=== PATIENT | female | born 1980 | race African-American/Black ===

== ENCOUNTER → 2016-07-14 | Outpatient (CLI) | payer BC ==
[~2016-07-14] MED LIST: PERC7.5T3 MT; Z.0.NO CURRENT MEDS
--- NOTE | 2016-07-14 19:04 | EKG ---
Date Performed: 07/14/2016 Time Performed: 10:47:34 PTAGE: 36 years EKG: Sinus rhythm NORMAL ECG NO PREVIOUS TRACING DOCTOR: Alexa Navas Interpretating Date/Time 07/14/2016 19:02:51
== END ==
LOC: HCAV 10:28
PROVIDERS: ATTEND Obstetrics & Gynecology
DX: R07.9 Chest pain, unspecified (principal)
CPT/HCPCS: 93005

== ENCOUNTER 2016-10-24 13:33 | Emergency (ER) | payer BC ==
[~2016-10-24] VITALS: Ht 157.5 cm; Wt 77.1 kg
--- NOTE | 2016-10-24 14:30 | PD ---
HPI Chief Complaint Cramping Travel History International Travel<30 Days: No Contact w/Intl Traveler<30Days: No Known Affected Area: No History of Present Illness HPI 36y/o , IUP at 30.0 PNC complicated by h/o LEEP, h/o PTD Patient presents c/o onset of intermittent lower abdominal cramping occurring about 2-3x/day that started Tuesday night. There are no aggravating or alleviating factors and have been no attempted treatment. She reports the cramping only lasts a minute or two. She said she didn't come in before now because she was just trying to ignore it but her girlfriend told her she should come get checked out. She denies any urinary complaints. She reports she doesn' t drink a lot of water. She also reports she is constipated and usually will only have 2 bowel movements per week. She reports good FM. She denies any LOF or VB, she denies any regular painful ctx. Para: 2 : 5 Miscarriage: 2 History Past Medical History Narrative Medical Anemia Obstetric History Obstetric History SAB x1, Biochemical x1 FT x1 (37w) PTD x1 (36w) h/o abnl PAP s/p LEEP Past Surgical History Narrative Surgical LEEP Family History Narrative Family History DM HTN Social History Alcohol Use: No Tobacco Use: No Substance Abuse: No Allergies-Medications (Allergen,Severity, Reaction): Coded Allergies: No Known Allergies (Verified , 10/24/16) Home Meds Reported Medications Oxycodone W/ Acetaminophen (Percocet)1 Tab Tab1-2 Ia Q4hprn #20 10/15/12 Miscellaneous (No Current Meds) [facility] [place] Review of Systems Except as stated in HPI: all other systems reviewed are Neg Physical Exam Narrative A&Ox3, NAD VSS AF GENERAL: Well-nourished, well-developed patient. SKIN: Warm and dry. No rashes/lesions noted. HEAD: Normocephalic and atraumatic. EYES: No scleral icterus. No injection or drainage. ENT: No nasal drainage noted. Mucous membranes pink. Airway patent. NECK: Supple, trachea midline. No JVD. CARDIOVASCULAR: Regular rate and rhythm without murmurs, gallops, or rubs. RESPIRATORY: Breath sounds equal bilaterally. No accessory muscle use. BREASTS: Deferred ABDOMEN/GI: Abdomen soft, non-tender, bowel sounds present, no rebound, no guarding Gravid GENITOURINARY: External Genitalia: intact and normal in appearance BUS glands: normal Cervix: visibly normal, no cervical/vaginal masses, normal rugae, some increased d/c in vagina noted with SSE, FFN obtained Dilatation: closed Effacement: thick Station: high Presentation: posterior Membranes: intact Uterine Contractions: none noted FHT's: Category: [1] Baseline: [130s] Reactive: [reactive] Variability: [moderate LTV] Decels: [no decels, good accels noted] EXTREMITIES: No cyanosis or edema. BACK: Nontender without obvious deformity. No CVA tenderness. NEUROLOGICAL: Awake and alert. Motor and sensory grossly within normal limits. Five out of 5 muscle strength in all muscle groups. Normal speech. MS: grossly normal ROM, gait, muscle strength PSYCH: grossly normal memory, affect Data Data Orders Vital Signs (Adult) .ON ADMISSION (10/24/16 14:28) ^ Labor Status (10/24/16 14:28) Urinalysis - C+S If Indicated (10/24/16 14:28) ^ Hydration (10/24/16 14:28) Fibronectin (10/24/16 14:28) Wet Prep Profile (10/24/16 14:28) MDM Plan A/P: 36y/o 1. IUP at 30.0 2. Cramping: no evidence of PTL, patient not darci here and FFn neg. Cervix closed on examination but patient doesn't drink much water, encourage good hyrdation 3. UA: no evidence of UTI 4. AMA 5. h/o LEEP 6. wellbeing: reassuring testing, FHR reassuring and appropriate for gestational age, reactive NST 7. Constipation: discussed that constipation can cause the sensation of cramping from her colon. Discussed effects of on constipation and suggestions given including increased po hydration, increased fiber and/or fiber supplementation, stool softener. 8. F/U with primary OB in 2-3d or sooner if needed Diagnosis Diagnosis: Primary Impression: 30 weeks gestation of Additional Impression: False labor Disposition: 01 DISCHARGE HOME Condition: Good Patient Instructions: Abdominal Pain in (ED), Early Labor Signs (ED) , Movement (ED) Additional Instructions: Encourage good hydration Increase fiber for constipation, may take fiber supplements and/or stool softener FKC PTL precautions F/U with primary Ob in 2-3d or sooner if needed Magaly Martinez MD Oct 24, 2016 14:30
[2016-10-24 15:10] LABS: BACTERIA, URINE OCC /hpf; BLOOD, URINE NEG (NEG); COMMENT (UR) CULT NOT INDICATED; CULTURE IF INDICATED CULT NOT INDICATED; GLUCOSE,URINE 1000 mg/dL (NEG); KETONE, URINE TRACE mg/dL (NEG); MUCUS URINE FEW /lpf (OCC); NITRITE,URINE NEG (NEG); SQUAMOUS EPITHELIAL CELL URINE 16 /hpf (0-5); URINE COLOR YELLOW (YELLW/STRAW)
[2016-10-24] MEDS ORDERED: BETAMETHASONE SOD PHOS/ACETATE SUSP 30 MG/5 ML VIAL IM ONE (18:00)
== END 2016-10-24 18:46 | disposition home or self-care (01) ==
LOC: HOBED 13:33
DX: O47.03 False labor before 37 completed weeks of gestation, third trimester (principal); Z3A.30 30 weeks gestation of pregnancy
CPT/HCPCS: 81001; 82731; 87210; 96372

== ENCOUNTER 2016-12-03 10:40 | Inpatient (IN) | payer BC ==
[2016-12-03] VITALS (14 sets, daily range): BP systolic 98–159; BP diastolic 69–99; PULSE 101–123; RESP 16–40; TEMP 98.3–98.8; O2SAT 92–100
[~2016-12-03] VITALS: Ht 157.5 cm; Wt 81.3 kg
--- NOTE | 2016-12-03 11:19 | PD ---
HPI Chief Complaint Headaches, Vomiting 3 days Diarrhea 1 day Date Seen: Dec 03, 2016 Time Seen: 11:00 Travel History International Travel<30 Days: No Contact w/Intl Traveler<30Days: No Known Affected Area: No History of Present Illness HPI Pt is a 36 yo with EDC at 01-02-2017. Pt is 35 weeks and 5 days. She reports nausea and vomiting past 3 days. Seen at [facility] and sent home with modified bed rest Pt also reports diarrhea since last night. Denies any sick contacts. She has had some headaches, but no vision disturbances and no right upper quadrant pain. Pt states BP has been elevated past few days, first at ER and then at the office. Pt has had longstanding pedal edema, but appears to have worsened past couple of days. Active movements No vaginal bleeding or vaginal leaking. Weeks Gestation: 35 Para: 2 : 5 History Past Medical History Medical History: Denies Significant Hx Obstetric History Obstetric History prior term pregnancies x 2 x two 1st trimester miscarriages Past Surgical History Narrative Surgical h/o LEEP 10 years ago Family History Family History: Negative Social History Alcohol Use: No Tobacco Use: No Substance Abuse: No Allergies-Medications (Allergen,Severity, Reaction): Coded Allergies: No Known Allergies (Verified , 10/24/16) Home Meds Reported Medications Oxycodone W/ Acetaminophen (Percocet) 1 Tab Tab, 1 - 2 MT Q4HPRN, #20 10/15/12 Miscellaneous (No Current Meds) [facility] [place] Review of Systems Except as stated in HPI: all other systems reviewed are Neg Physical Exam Narrative GENERAL: Well-nourished, well-developed patient. SKIN: Warm and dry. HEAD: Normocephalic and atraumatic. EYES: No scleral icterus. No injection or drainage. ENT: No nasal drainage noted. Mucous membranes pink. Airway patent. NECK: Supple, trachea midline. No JVD. CARDIOVASCULAR: Regular rate and rhythm without murmurs, gallops, or rubs. RESPIRATORY: Breath sounds equal bilaterally. No accessory muscle use. BREASTS: Bilateral exam showed no masses , no retractions, no nipple discharge. ABDOMEN/GI: Abdomen soft, non-tender, bowel sounds present, no rebound, no guarding Gravid to [35] weeks size Fundal Height: [-] GENITOURINARY: External Genitalia: intact and normal in appearance BUS glands: [-] Cervix: [-] Dilatation: [-] Effacement: [-] Station: [-] Presentation: [-] Membranes: [intact or ruptured] Uterine Contractions: [-] FHT's: Category: [-] Baseline: [-] Reactive: [-] Variability: [-] Decels: [-] EXTREMITIES: No cyanosis or edema. BACK: Nontender without obvious deformity. No CVA tenderness. NEUROLOGICAL: Awake and alert. Motor and sensory grossly within normal limits. Five out of 5 muscle strength in all muscle groups. Normal speech. Data Data Vital Signs Reviewed: Yes [facility] Medical Record Reviewed: Yes Interpretation(s) 36 yo with nausea, vomiting diarrhea. Pt has elevated BPs, and urine confirms dehydration ( SG 1.050. with ketones) and urine protein is 600mg/dL PIH labd wnl except for uric Acid at 6.5. Pedal edema 3+, DTRs at patella 1+, no ankle clonus. D/W Dr Carson, plan is to admit for 23 hour observation. IVF for rehydration. Initiate 24 urine collection, observe BPs, repeat PIH labs in am. Plan Admit 23 hour observation. Initiate 24 hour urine collection, observe BPs, repeat PIH labs in AM. Allow diet as tolerated, activity bedrest with bathroom privileges. Diagnosis Diagnosis: Primary Impression: 36 weeks gestation of Additional Impressions: Dehydration PIH ( induced hypertension), antepartum Gastroenteritis Condition: Stable Stephan Redding MD Dec 03, 2016 11:19
[2016-12-03 11:30] LABS: HEMATOCRIT 34.6 % (35.0-46.0); MEAN CELL VOLUME 73.1 FL (80.0-100.0); MEAN CORPUSCULAR HEMOGLOBIN 22.8 PG (27.0-34.0); MEAN CORPUSCULAR HGB CONC 31.2 % (32.0-36.0); PLATELET COUNT 228 TH/MM3 (150-450); RED BLOOD COUNT 4.74 MIL/MM3 (4.00-5.30); RED CELL DISTRIBUTION WIDTH 19.3 % (11.6-17.2); REVIEW FLAG FINAL; WHITE BLOOD COUNT 6.4 TH/MM3 (4.0-11.0)
[2016-12-03] MEDS ORDERED: ACETAMINOPHEN 325 MG TAB PO PRN ×2 (11:30→13:00)
[2016-12-03 11:43] LABS: BACTERIA, URINE MOD /hpf; BLOOD, URINE SMALL (NEG); COMMENT (UR) CULTURE INDICATED; CULTURE IF INDICATED CULTURE INDICATED; GLUCOSE,URINE 70 mg/dL (NEG); HYALINE CAST, URINE 2 /lpf (RARE); KETONE, URINE 40 mg/dL (NEG); MUCUS URINE MANY /lpf (OCC); NITRITE,URINE NEG (NEG); SQUAMOUS EPITHELIAL CELL URINE 16 /hpf (0-5); TRANSITIONAL EPI CELLS, URINE <1 /hpf; URINE COLOR YELLOW (YELLW/STRAW)
[2016-12-03 11:51] LABS: ALT (GPT) 29 U/L (10-53); ANION GAP 10 MEQ/L (5-15); AST (GOT) 31 U/L (15-37); BICARBONATE 22.5 MEQ/L (21.0-32.0); BLOOD UREA NITROGEN 9 MG/DL (7-18); CHLORIDE 110 MEQ/L (98-107); GLOMERULAR FILTRATION RATE 118 ML/MIN (>89); POTASSIUM 3.8 MEQ/L (3.5-5.1); SODIUM (NA) 142 MEQ/L (136-145); URIC ACID 6.6 MG/DL (2.6-6.0)
[2016-12-03 11:53] LABS: ALKALINE PHOSPHATASE 134 U/L (45-117); TOTAL BILIRUBIN ADULT 0.5 MG/DL (0.2-1.0)
[2016-12-03] MEDS ORDERED: SODIUM CHLORIDE 0.9% FLUSH 5 ML FLUSH IV PRN (12:30)
[2016-12-03] MEDS ORDERED: ONDANSETRON ODT 4 MG TAB PO PRN (12:30)
[2016-12-03] MEDS ORDERED: LACTATED RINGER'S 1000 ML INJ 1,000 ML IV SCH ×3 (13:00→19:10)
[2016-12-03] MEDS ORDERED: ONDANSETRON HCL 4 MG/2 ML VIAL IV PUSH ONE (13:00)
[2016-12-03] MEDS ORDERED: FUROSEMIDE 40 MG/4 ML VIAL ONE (13:15)
[2016-12-03] MEDS ORDERED: LABETALOL HCL 100 MG/20 ML VIAL ONE (13:25)
[2016-12-03] MEDS ORDERED: MAGNESIUM SULFATE 40 GM PREMIX 1,000 ML ONE (13:27)
[2016-12-03] MEDS ORDERED: OXYTOCIN 10 UNIT/ML AMP ONE (13:40)
[2016-12-03] MEDS ORDERED: ceFAZolin INJ 1,000 MG VIAL ONE (13:45)
[2016-12-03 13:54] LABS: BLOOD GAS BASE EXCESS -5.4 mmol/L (-2-2); BLOOD GAS CARBOXYHEMOGLOBIN 1.5 % (0-4); BLOOD GAS HCO3 18 mmol/L (22-26); BLOOD GAS METHEMOGLOBIN 1.2 % (0-2); BLOOD GAS O2 HGB SATURATION 75 % (90-100); BLOOD GAS PCO2 29 mmHg (38-42); BLOOD GAS PO2 48 mmHg (61-120); BLOOD GAS TOTAL HGB 11.4 G/DL (12.0-16.0); TEMP CORR TO 98.6
[2016-12-03 13:55] LABS: BLOOD GAS BASE EXCESS -4.2 mmol/L (-2-2); CORD BLOOD GAS HCO3 24 mmol/L (21-29); CORD BLOOD GAS PCO2 70 mmHG (34-78); CORD BLOOD GAS PH 7.15 (7.14-7.42)
[2016-12-03 13:55] LABS: CRITICAL VALUE YES; DRAW SITE RT RADIAL; FIO2 100 %; LITER FLOW 15 L/M; NUMBER OF ARTERIAL PUNCTURES 1; STAT YES; ULNAR PULSE PRESENT
[2016-12-03 13:56] LABS: BLOOD GAS O2 HGB SATURATION 2 % (90-100); CORD BLOOD GAS PO2 3 mmHG (3.0-40.0); DRAW SITE CORD BLOOD; STAT YES
[2016-12-03] MEDS ORDERED: FUROSEMIDE 40 MG/4 ML VIAL IV PUSH ONE ×2 (14:00→17:00)
--- NOTE | 2016-12-03 14:07 | PD.OB.DELI ---
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 Urinary catheter: Inserted using sterile technique Sterile preparation: With 10% povidone iodine (Betadine), With drapes to expose affected area Position: Supine with wedge to left side Operative Features Skin Incision: Pfannenstiel Uterine Incision: Low transverse w/knife / blunt ext Membranes Ruptured: Artificially Presentation: Breech Delivery date: Dec 03, 2016 Delivery time: 13:40 Delivery of : Uneventful Infant: Single One Minute : 8 Five Minute : 9 Weight: 5# 5 oz Status of infant: Viable, Cord blood (cord gas) Placenta delivered: Intact Medications: Antibiotics Estimated blood loss: 500 Procedure tolerated: Well Maternal Complications: Pulmonary (edema) Maternal Condition: Stable Condition: Stable Leo Carson MD Dec 03, 2016 14:07
[2016-12-03] MEDS ORDERED: OXYTOCIN 30 UNITS-500ML PREMIX 500 ML IV ONE (14:15)
[2016-12-03] MEDS ORDERED: SODIUM CHLORIDE 0.9% FLUSH 10 ML FLUSH IV FLUSH PRN (14:15)
[2016-12-03] MEDS ORDERED: KETOROLAC TROMETHAMINE 60 MG/2 ML (IM) VIAL IM PRN (14:15)
--- NOTE | 2016-12-03 14:24 | RADRPT ---
EXAM DATE/TIME: 12/03/2016 13:10 [facility] COMPARISON: No previous studies available for comparison. INDICATIONS : Shortness of breath. MEDICAL HISTORY : None. SURGICAL HISTORY : None. ENCOUNTER: Initial ACUITY: 1 day PAIN SCORE: 0/10 LOCATION: Bilateral chest FINDINGS: The heart is mildly enlarged. Moderate pulmonary vascular congestion is noted bilaterally. Small bi lateral pleural effusions are noted. CONCLUSION: 1. Moderate pulmonary vascular congestion bilaterally. 2. Small bilateral pleural effusions. 3. Mild cardiomegaly. Brendan Frank MD on December 03, 2016 at 14:03 Board Certified Radiologist. This report was verified electronically.
[2016-12-03] MEDS ORDERED: MIDAZOLAM HCL 2 MG/2 ML VIAL ONE (14:42)
--- NOTE | 2016-12-03 14:48 | RADRPT ---
EXAM DATE/TIME: 12/03/2016 14:04 [facility] COMPARISON: No previous studies available for comparison. INDICATIONS : Instrument verification. MEDICAL HISTORY : None. SURGICAL HISTORY : stat c/section ENCOUNTER: Initial ACUITY: 1 day PAIN SCORE: 0/10 LOCATION: lower abdominal FINDINGS: Supine view of the abdomen was performed. The abdominal bowel gas pattern is normal. No abnormal ma sses, calcifications, or organomegaly is seen. No metallic foreign bodies are identified within the abdomen or pelvis. The osseous structures are unremarkable. CONCLUSION: No metallic foreign bodies identified within the abdomen or pelvis. Brendan Frank MD on December 03, 2016 at 14:47 Board Certified Radiologist. This report was verified electronically.
--- NOTE | 2016-12-03 14:49 | EKG ---
Date Performed: 12/03/2016 Time Performed: 13:22:53 PTAGE: 36 years EKG: Baseline artifact present SINUS TACHYCARDIA WITH SHORT HI INTERVAL Premature ventricular co ntractions Nonspecific T wave changes POSSIBLE ANTERIOR MYOCARDIAL INFARCTION , OF INDETERMINATE AGE ABNORMAL ECG Compared to prior electrocardiogram, Nonspecific T wave changes and PVCs are now present and rate has increased PREVIOUS TRACING : 07/14/2016 10.47 DOCTOR: Chadd Garcia Interpretating Date/Time 12/03/2016 14:46:44
[2016-12-03] MEDS ORDERED: PROPOFOL 1000 MG/100 ML INJ 100 ML IV PRN (15:00)
[2016-12-03] MEDS ORDERED: fentaNYL DRIP 250 ML IV PRN (15:00)
[2016-12-03] MEDS: FAMOTIDINE 20 MG/2 ML VIAL IV PUSH SCH (15:00)
--- NOTE | 2016-12-03 15:12 | PD.CONS ---
[facility] Service Critical Care Medicine Consult Requested By Obstetrics Reason for Consult Critical Care Primary Care Physician No Primary Care Physician History of Present Illness 36 y/o 35 weeks gestation mother developed hypertension over past several days which escalated to fluid retention, pulmonary edema, and preeclampsia. She was treated with magnesium, diuretics, and intubation and taken straight to the OR for delivery. CXR with diffuse interstitial edema. I met her on her arrival to the [facility]. Pupils 4 mm, nonreactive. Recent relaxant by history. BP 160s. Review of Systems ROS Unobtainable Past Family Social History Allergies: Coded Allergies: No Known Allergies (Verified , 10/24/16) Past Medical History History Past Medical History Medical History: Denies Significant Hx Obstetric History Obstetric History prior term pregnancies x 2 x two 1st trimester miscarriages Past Surgical History Narrative Surgical h/o LEEP 10 years ago Family History Family History: Negative Social History Alcohol Use: No Tobacco Use: No Substance Abuse: No Allergies-Medications Allergies-Medications (Allergen,Severity, Reaction): Coded Allergies: No Known Allergies (Verified , 10/24/16) Home Meds Reported Medications Oxycodone W/ Acetaminophen (Percocet) 1 Tab Tab, 1 - 2 MT Q4HPRN, #20 10/15/12 Miscellaneous (No Current Meds) Misc 10/13/12 Physical Exam Vital Signs Vital Signs Date Time Temp Pulse Resp B/P (MAP) Pulse Ox O2 Delivery O2 Flow Rate FiO2 12/03/16 14:50 92 100 12/03/16 13:03 40 12/03/16 11:30 101 138/97 (111) 12/03/16 11:30 102 12/03/16 11:30 98.3 18 12/03/16 11:26 103 139/96 (110) 12/03/16 11:25 102 12/03/16 11:20 104 12/03/16 11:15 106 Physical Exam P 118, BP 168/114, R 16, Sats 91% Head: Normal. Neck: Supple, orally intubated. Lungs: Diffuse crackles, no wheezes. Good air movement. Heart: NL S1S2, no m,r. Abdomen: Nondistended, soft. Lower transverse incision. Neuro: Unresponsive, no movement. No gag or cough. No spontaneous respirations Laboratory Laboratory Tests Test 12/03/16 11:10 12/03/16 13:15 9/15/17 13:45 White Blood Count 6.4 Red Blood Count 4.74 Hemoglobin 10.8 Hematocrit 34.6 Mean Corpuscular Volume 73.1 Mean Corpuscular Hemoglobin 22.8 Mean Corpuscular Hemoglobin Concent 31.2 Red Cell Distribution Width 19.3 Platelet Count 228 Mean Platelet Volume 9.4 Urine Color YELLOW Urine Turbidity HAZY Urine pH 7.0 Urine Specific [place] 1.050 Urine Protein GREATER THAN 600 Urine Glucose (UA) 70 Urine Ketones 40 Urine Occult Blood SMALL Urine Nitrite NEG Urine Bilirubin NEG Urine Urobilinogen LESS THAN 2.0 Urine Leukocyte Esterase NEG Urine RBC 1 Urine WBC 10 Urine Squamous Epithelial Cells 16 Urine Transitional Epithelial Cells <1 Urine Amorphous Sediment RARE Urine Bacteria MOD Urine Hyaline Casts 2 Urine Mucus MANY Microscopic Urinalysis Comment CULTURE INDICATED Blood Urea Nitrogen 9 Creatinine 0.68 Random Glucose 80 Total Protein 5.9 Albumin 2.2 Calcium Level 8.4 Uric Acid 6.6 Alkaline Phosphatase 134 Aspartate Amino Transf (AST/SGOT) 31 Alanine Aminotransferase (ALT/SGPT) 29 Total Bilirubin 0.5 Sodium Level 142 Potassium Level 3.8 Chloride Level 110 Carbon Dioxide Level 22.5 Anion Gap 10 Estimat Glomerular Filtration Rate 118 B-Type Natriuretic Peptide 1413 Blood Gas Puncture Site RT RADIAL CORD BLOOD Blood Gas Patient Temperature 98.6 Blood Gas HCO3 18 Blood Gas Base Excess -5.4 -4.2 Blood Gas Oxygen Saturation 75 2 Arterial Blood pH 7.42 Arterial Blood Partial Pressure CO2 29 Arterial Blood Partial Pressure O2 48 Arterial Blood Oxygen Content 12.0 Arterial Blood Carboxyhemoglobin 1.5 Arterial Blood Methemoglobin 1.2 Blood Gas Hemoglobin 11.4 Oxygen Delivery Device Non-Rebreathing Mask Blood Gas Liter Flow 15 Blood Gas Inspired Oxygen 100 Cord Blood HCO3 24 Cord Arterial Blood pH 7.15 Cord Arterial Blood PCO2 70 Cord Arterial Blood PO2 3 Date/Time Source Procedure Growth Status 12/03/16 11:10 Urine Clean Catch Urine Culture Pending Received Result Diagram: 12/03/16 1110 12/03/16 1110 Assessment and Plan Assessment and Plan Assessment: 1. Preeclampsia. 2. S/P delivery 12/03. 3. Hypertension. 4. Hypoxemic Respiratory Failure. 5. Pulmonary edema. Plan: 1. PRVC vent mode. 2. PEEP 10. 3. Stat coags, Trop, CK. 4. Lactic acid. 5. ABG. 6. No iv fluid. 7. Lasix X 1 now. 8. Check Mag level. 9. Fentanyl analgesia. 10. Continue Mag gtt for 24 hours. Overall impression: Critically ill with hypoxemic respiratory failure following emergency delivery for preeclampsia. Critical care 44 mins Nicholas Davison MD Dec 03, 2016 15:12
[2016-12-03] MEDS ORDERED: HYDROmorphone HCL PF 1 MG/ML VIAL IV PUSH PRN (15:15)
[2016-12-03] MEDS ORDERED: MAGNESIUM OXIDE 400 MG TAB PO PRN (15:15)
[2016-12-03] MEDS ORDERED: MAGNESIUM SULFATE INJ 2 GM in SODIUM CHLORIDE 0.9% INJ 96 ML IV PRN (15:15)
[2016-12-03] MEDS ORDERED: POTASSIUM CHLOR 40 MEQ PREMIX 100 ML IV PRN ×2 (15:15)
[2016-12-03] MEDS ORDERED: MAGNESIUM SULFATE INJ 4 GM in SODIUM CHLORIDE 0.9% INJ 92 ML IV PRN (15:15)
[2016-12-03] MEDS ORDERED: POTASSIUM CHLORIDE 25 MEQ EFFERVESCENT TAB PO PRN (15:15)
[2016-12-03] MEDS ORDERED: POTASSIUM PHOSPHATE MONOBASIC 500 MG TAB PO PRN (15:15)
[2016-12-03] MEDS ORDERED: SODIUM PHOSPHATE INJ 30 MMOL in SODIUM CHLOR 0.9% 250 ML INJ 240 ML IV PRN (15:15)
[2016-12-03] MEDS ORDERED: POTASSIUM PHOSPHATE INJ 30 MMOL in SODIUM CHLOR 0.9% 250 ML INJ 250 ML IV PRN (15:15)
[2016-12-03] MEDS ORDERED: POTASSIUM PHOSPHATE MONOBASIC 500 MG TAB PO/TUBE PRN (15:15)
[2016-12-03] MEDS ORDERED: POTASSIUM CHLOR 20 MEQ PREMIX 100 ML IV PRN ×2 (15:15)
[2016-12-03] MEDS ORDERED: MISOPROSTOL 200 MCG TAB ONE (15:18)
[2016-12-03] MEDS ORDERED: CARBOPROST TROMETHAMINE 250 MCG/ML VIAL ONE (15:18)
[2016-12-03] MEDS ORDERED: fentaNYL 2,500 MCG/NS 250 ML IV PRN (15:30)
[2016-12-03] MEDS: PROPOFOL 1000 MG/100 ML IV PRN (15:40)
[2016-12-03] MEDS ORDERED: LABETALOL HCL 100 MG/20 ML VIAL IV PUSH PRN (16:00)
[2016-12-03] MEDS ORDERED: hydrALAZINE HCL 20 MG/ML VIAL IV PUSH PRN (16:00)
[2016-12-03] MEDS ORDERED: MIDAZOLAM HCL 5 MG/ML VIAL (1 ML) ONE (16:01)
--- NOTE | 2016-12-03 16:02 | HHI.OB ---
Subjective Post Day: 0 Objective Vitals/I&O BP167/107, pulse 84b/min Vital Signs Date Time Temp Pulse Resp B/P (MAP) Pulse Ox O2 Delivery O2 Flow Rate FiO2 12/03/16 14:50 92 100 12/03/16 14:30 96 100 12/03/16 13:03 40 12/03/16 11:30 101 138/97 (111) 12/03/16 11:30 102 12/03/16 11:30 98.3 18 12/03/16 11:26 103 139/96 (110) 12/03/16 11:25 102 12/03/16 11:20 104 12/03/16 11:15 106 Objective Remarks GENERAL: Well-nourished, well-developed patient. CARDIOVASCULAR: Regular rate and rhythm without murmurs, gallops, or rubs. RESPIRATORY: Breath sounds equal bilaterally. No accessory muscle use. ABDOMEN/GI: Abdomen soft, non-tender. Fundus: Firm, non-tender at umbilicus. GENITOURINARY: Light to moderate bleeding. EXTREMITIES: No cyanosis or edema, non-tender, without signs of DVT. Pt is intubated on vent. 'Chucks' soaked, and more blood clot noted. Another 300cc blood clot removed from vagina. Total about 1000cc blood loss. Uterus well contracted with fundus Pt received 250mcg Hemate IM and Misoprostil 800mcg per rectum. Medications and IVs Current Medications Medications (Trade) Dose Ordered Sig/Niels Route Start Time Stop Time Status Last Admin (Tylenol) 650 mg Q4H PRN PO 12/03/16 11:30 (Tylenol) 650 mg Q4H PRN PO 12/03/16 13:00 (Zofran Odt) 4 mg Q6H PRN PO 12/03/16 12:30 (Stuartnatal Plus 3 ) 1 tab DAILY PO 12/04/16 09:00 Oxytocin 500 ml @ 100 mls/hr ONCE ONCE IV 12/03/16 14:15 12/03/16 19:14 Oxytocin 500 ml @ 100 mls/hr UNSCH X1 PRN IV 12/04/16 00:15 12/05/16 00:14 (NS Flush) 2 ml BID IV FLUSH 12/03/16 21:00 (NS Flush) 2 ml UNSCH PRN IV FLUSH 12/03/16 14:15 (Motrin) 600 mg Q6H PRN PO 12/03/16 14:15 (Toradol Inj) 30 mg Q6H PRN IM 12/03/16 14:15 12/04/16 14:14 (Percocet 5-325 Mg) 1 tab Q4H PRN PO 12/03/16 14:15 (Percocet 5-325 Mg) 2 tab Q4H PRN PO 12/03/16 14:15 (M-M-R Ii Inj) 0.5 ml ONCE ONCE SQ 12/04/16 16:00 12/04/16 16:01 (Boostrix Inj) 0.5 ml ONCE ONCE IM 12/04/16 16:00 12/04/16 16:01 (Peridex 0.12% Liq) 15 ml BID@08,20 MT 12/03/16 20:00 (Pepcid Inj) 20 mg Q12H IV PUSH 12/03/16 15:00 (Dilaudid Pf Inj) 1 mg Q4H PRN IV PUSH 12/03/16 15:15 (Lasix Inj) 60 mg ONCE ONCE IV PUSH 12/03/16 17:00 12/03/16 17:01 Potassium Chloride 100 ml @ 50 mls/hr Q2H PRN IV 12/03/16 15:15 Potassium Chloride 100 ml @ 50 mls/hr Q2H PRN IV 12/03/16 15:15 (K-Lyte Cl Eff) 50 meq UNSCH PRN PO 12/03/16 15:15 Potassium Chloride 100 ml @ 25 mls/hr UNSCH PRN IV 12/03/16 15:15 Potassium Chloride 100 ml @ 50 mls/hr Q2H PRN IV 12/03/16 15:15 Magnesium Sulfate 4 gm/Sodium Chloride 100 ml @ 50 mls/hr UNSCH PRN IV 12/03/16 15:15 (Mag-Ox) 800 mg UNSCH PRN PO 12/03/16 15:15 Magnesium Sulfate 2 gm/Sodium Chloride 100 ml @ 50 mls/hr UNSCH PRN IV 12/03/16 15:15 (K-Phos) 2,000 mg Q4H PRN PO 12/03/16 15:15 Sodium Phosphate 30 mmol/Sodium Chloride 250 ml @ 42 mls/hr UNSCH PRN IV 12/03/16 15:15 (K-Phos) 2,000 mg UNSCH PRN PO/TUBE 12/03/16 15:15 Potassium Phosphate 30 mmol/ Sodium Chloride 260 ml @ 42 mls/hr UNSCH PRN IV 12/03/16 15:15 Propofol 100 ml @ 2.721 mls/ hr TITRATE PRN IV 12/03/16 15:30 Fentanyl Citrate 250 ml @ 5 mls/hr TITRATE PRN IV 12/03/16 15:30 Assessment/Plan Assessment and Plan , s/p LTCS for severe pre-eclampsia and pulmonary edema. PPH. Pt was given Hemabate 250mcg and Misoprostil 800mcg per rectum Urine output improved. Check CBC Will follow Stephan Redding MD Dec 03, 2016 16:02
[2016-12-03] MEDS ORDERED: LACTATED RINGER'S 1000 ML INJ 1,000 ML IV ONE ×2 (16:03)
--- NOTE | 2016-12-03 16:23 | PD.PROCEDR ---
Procedure Note Procedure DX: Preeclampsia OP: Insertion Central Venous Line ([id number]) Procedure: Left chest prepped and drape. Left subclavian vein cannulated and wire easily advanced. Catheter passed over wire to 16 cm. Lumens aspirated and flushed. Dressing applied. CXR ordered, will review. Nicholas Davison MD Dec 03, 2016 16:23
[2016-12-03 16:24] LABS: AUTOMATED NEUTROPHIL # 17.4 TH/MM3 (1.8-7.7); BASOPHIL % 0.2 % (0.0-2.0); EOSINOPHIL % 0.2 % (0.0-4.0); HEMATOCRIT 36.9 % (35.0-46.0); LYMPHOCYTE # 1.8 TH/MM3 (1.0-4.8); MEAN CORPUSCULAR HEMOGLOBIN 22.8 PG (27.0-34.0); MEAN CORPUSCULAR HGB CONC 30.4 % (32.0-36.0); MONO % 5.2 % (0.0-8.0); NEUT % 85.4 % (16.0-70.0); PLATELET COUNT 294 TH/MM3 (150-450); RED BLOOD COUNT 4.92 MIL/MM3 (4.00-5.30); RED CELL DISTRIBUTION WIDTH 19.8 % (11.6-17.2); WHITE BLOOD COUNT 20.4 TH/MM3 (4.0-11.0)
[2016-12-03 16:31] LABS: HEMO FLAGS AUTO DIFF
[2016-12-03 16:59] LABS: APTT (PATIENT) 28.3 SEC (24.3-30.1); INTERNATIONAL NORMALIZED RATIO 0.9 RATIO; PROTHROMBIN TIME - PATIENT 9.7 SEC (9.8-11.6)
[2016-12-03 17:12] LABS: ALKALINE PHOSPHATASE 144 U/L (45-117); ALT (GPT) 28 U/L (10-53); ANION GAP 9 MEQ/L (5-15); AST (GOT) 46 U/L (15-37); BICARBONATE 21.6 MEQ/L (21.0-32.0); BLOOD UREA NITROGEN 8 MG/DL (7-18); CHLORIDE 107 MEQ/L (98-107); CREATINE KINASE 260 U/L (26-192); GLOMERULAR FILTRATION RATE 103 ML/MIN (>89); MAGNESIUM 3.9 MG/DL (1.5-2.5); SODIUM (NA) 138 MEQ/L (136-145); TOTAL BILIRUBIN ADULT 0.4 MG/DL (0.2-1.0)
[2016-12-03 17:28] LABS: POTASSIUM 4.2 MEQ/L (3.5-5.1)
[2016-12-03 17:31] LABS: BANDS 9 % (0-6); POLYS (SEG NEUTROPHILS) 79 % (16-70); WBC DIFF SAMPLE 100
[2016-12-03 17:32] LABS: PLATELET ESTIMATE SMEAR NORMAL (NORMAL); PLATELET MORPHOLOGY NORMAL (NORMAL); SCAN/DIFF FINAL DIFF MANUAL
[2016-12-03 17:33] LABS: ACANTHOCYTES OCC (NORMAL); KERATOCYTES OCC (NORMAL)
[2016-12-03 17:35] LABS: OVALOCYTES 1+ (NORMAL); TEARDROP RBCS 1+ (NORMAL)
[2016-12-03 17:41] LABS: CKMB 2.1 NG/ML (0.5-3.6)
--- NOTE | 2016-12-03 18:06 | MH ---
cc: ANIKA SHAH DATE OF ADMISSION: 12/03/2016 HISTORY OF PRESENT ILLNESS: This is a 36-year-old 4, para 2 who has been followed in my office for good care. She was last seen yesterday 12/02/2016 and had slight elevation in her blood pressure of 140/90. The patient has been doing very well with her . She has had some proteinuria but otherwise unremarkable care up to this point. The patient came to the hospital today complaining of headache, some elevated blood pressures, diarrhea and was admitted to the hospital for observation by Dr. Luong. The patient received IV fluids for some concentrated urine an developed pulmonary edema with flash pulmonary edema and saturations on 100% non-rebreather of 80%. A decision was made in consulting with the intensivists along with anesthesiology that the patient undergo delivery of this infant, so we could manage her respiratory status not being . The patient is 35 weeks and 6 days and decision was made for a STAT section. PAST MEDICAL HISTORY: None. PAST SURGICAL HISTORY: She has had a LEEP procedure in 2007 and two vaginal deliveries in the past. OBSTETRICAL HISTORY: She had good care, 35 weeks and 6 days. 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 MEDICATIONS: None. ALLERGIES: None. SOCIAL HISTORY: She is and has two children. PHYSICAL EXAMINATION: VITAL SIGNS: See [employer] but her blood pressures were labile but not in the severe range on initial admission. GENERAL: The patient was in no acute distress per Dr. Luong's report. The patient was slightly short of breath but was not in acute distress. ABDOMEN: She had a gravid uterus. PELVIC: Cervix was closed. LABORATORY DATA: The patient had very concentrated urine. IMPRESSION AT THIS TIME: 1. Nausea and vomiting and diarrhea at 35 weeks and 6 days admitted for 23-hour observation. 2. The patient has some urinary concentration with nausea and vomiting and it is felt that IV fluids would be recommended. 3. The patient had flash pulmonary edema with pre-eclampsia, although liver functions and platelet count are normal. She has had proteinuria and had flash pulmonary edema with the need for stat section. MD OSWALD Brewer/FATOUMATA Tesfaye: 12/03/2016/4:45 PM /5:51 PM
--- NOTE | 2016-12-03 19:44 | RADRPT ---
EXAM DATE/TIME: 12/03/2016 19:08 [facility] COMPARISON: CHEST SINGLE AP, December 03, 2016, 13:10. INDICATIONS : central line placement MEDICAL HISTORY : unobtainable SURGICAL HISTORY : Stat ENCOUNTER: Initial ACUITY: 1 day PAIN SCORE: Non-responsive. LOCATION: Bilateral chest FINDINGS: Decreasing pulmonary edema, now mild. Heart size stable, upper limits of normal. Very small, bilatera l pleural effusions are likely and probably slightly decreased in size. No pneumothorax. Patient is now intubated. Endotracheal tube tip is approximately 5 cm above the vikki. There is a na sogastric tube that courses into the stomach and a new left subclavian central venous catheter with t ip in the superior vena cava. CONCLUSION: 1. Appropriately positioned lines and tubes as above. No pneumothorax or other acute complication dem onstrated. 2. Decreased edema and pleural effusions, now mild/small. Leo Shrestha MD on December 03, 2016 at 19:41 Board Certified Radiologist. This report was verified electronically.
[2016-12-03] MEDS ORDERED: SODIUM CHLORIDE 0.9% FLUSH 5 ML FLUSH IV SCH (21:00)
[2016-12-03] MEDS: CHLORHEXIDINE 0.12% (ORAL KIT) 15 ML CUP MT SCH (22:37)
[2016-12-03] MEDS: SODIUM CHLORIDE 0.9% FLUSH 10 ML FLUSH IV FLUSH SCH (22:38)
[2016-12-03] MEDS ORDERED: MAGNESIUM SULFATE 40 GM PREMIX 1,000 ML IV SCH (23:30)
[2016-12-03 23:58] LABS: BICARBONATE 24.7 MEQ/L (21.0-32.0); MAGNESIUM 5.7 MG/DL (1.5-2.5); POTASSIUM 4.3 MEQ/L (3.5-5.1)
[2016-12-04] VITALS (22 sets, daily range): BP systolic 118–129; BP diastolic 60–87; PULSE 101–126; RESP 16–19; TEMP 97.5–98.9; O2SAT 96–100
[2016-12-04] MEDS ORDERED: OXYTOCIN 30 UNITS-500ML PREMIX 500 ML IV PRN (00:15)
[2016-12-04] MEDS: FAMOTIDINE 20 MG/2 ML VIAL IV PUSH SCH ×2 (04:11→15:00)
[2016-12-04] MEDS: PROPOFOL 1000 MG/100 ML IV PRN (04:34)
--- NOTE | 2016-12-04 05:17 | RADRPT ---
EXAM DATE/TIME: 12/04/2016 03:18 [facility] COMPARISON: CHEST SINGLE AP, December 03, 2016, 19:08. INDICATIONS : Evaluate Eclampsia, Respiratory failure MEDICAL HISTORY : Unobtainable SURGICAL HISTORY : section. ENCOUNTER: Subsequent ACUITY: 2 days PAIN SCORE: Non-responsive. LOCATION: Bilateral chest FINDINGS: A single view of the chest demonstrates the lungs to be hypoinflated. Left-sided consolidation/effusi on shows interval improvement but there now appears to be some left perihilar infiltrates with extens ion into the base. Accounting for low lung lines normal heart size is upper limits of normal. Endotra cheal tube remains appropriately positioned above the vikki with the tip at the clavicular heads. Na sogastric tube and left subclavian central venous catheter appear to been removed. CONCLUSION: 1. Endotracheal tube and appropriate position of the vikki. 2. Developing left perihilar airspace disease extending into the medial left base. This may be partia lly atelectatic due to low lung volumes. 3. Improving left sided effusion Dale Perez MD on December 04, 2016 at 5:12 Board Certified Radiologist. This report was verified electronically.
[2016-12-04 05:21] LABS: AUTOMATED NEUTROPHIL # 19.2 TH/MM3 (1.8-7.7); BASOPHIL % 0.1 % (0.0-2.0); HEMATOCRIT 24.4 % (35.0-46.0); HEMO FLAGS DIFF FINAL; LYMPH % 4.7 % (9.0-44.0); MEAN CELL VOLUME 73.7 FL (80.0-100.0); MEAN CORPUSCULAR HEMOGLOBIN 23.4 PG (27.0-34.0); MEAN CORPUSCULAR HGB CONC 31.7 % (32.0-36.0); MONO % 7.8 % (0.0-8.0); NEUT % 87.4 % (16.0-70.0); PLATELET COUNT 201 TH/MM3 (150-450); RED BLOOD COUNT 3.31 MIL/MM3 (4.00-5.30); RED CELL DISTRIBUTION WIDTH 19.5 % (11.6-17.2); WHITE BLOOD COUNT 21.9 TH/MM3 (4.0-11.0)
[2016-12-04 05:54] LABS: ANION GAP 11 MEQ/L (5-15); AST (GOT) 32 U/L (15-37); BICARBONATE 22.9 MEQ/L (21.0-32.0); BLOOD UREA NITROGEN 13 MG/DL (7-18); CHLORIDE 108 MEQ/L (98-107); GLOMERULAR FILTRATION RATE 93 ML/MIN (>89); POTASSIUM 3.9 MEQ/L (3.5-5.1); SODIUM (NA) 142 MEQ/L (136-145)
[2016-12-04 05:55] LABS: ALT (GPT) 23 U/L (10-53); URIC ACID 7.9 MG/DL (2.6-6.0)
[2016-12-04 05:58] LABS: ALKALINE PHOSPHATASE 96 U/L (45-117); TOTAL BILIRUBIN ADULT 0.3 MG/DL (0.2-1.0)
--- NOTE | 2016-12-04 07:21 | HHI.CCPN ---
Subjective Remarks/Hospital Course 36 y/o 35 weeks gestation mother developed hypertension over past several days which escalated to fluid retention, pulmonary edema, and preeclampsia. She was treated with magnesium, diuretics, and intubation and taken straight to the OR for delivery. CXR with diffuse interstitial edema. I met her on her arrival to the [facility]. Pupils 4 mm, nonreactive. Recent relaxant by history. BP 160s. 12/04: FiO2 0.30. Looks strong on SBTs 5/5. Lytes acceptable. Infiltrate left lung. Warm, well perfused. Objective Vital Signs Date Time Temp Pulse Resp B/P (MAP) Pulse Ox O2 Delivery O2 Flow Rate FiO2 12/04/16 06:00 114 16 129/60 (83) 100 12/04/16 04:06 30 12/04/16 04:00 97.5 12/03/16 20:00 Mechanical Ventilator Result Diagram: 12/04/16 0500 12/04/16 0500 Other Results Laboratory Tests Test 12/03/16 13:15 12/03/16 13:45 Blood Gas Puncture Site RT RADIAL CORD BLOOD Blood Gas Patient Temperature 98.6 Blood Gas HCO3 18 mmol/L (22-26) Blood Gas Base Excess -5.4 mmol/L (-2-2) -4.2 mmol/L (-2-2) Blood Gas Oxygen Saturation 75 % (90-100) 2 % (90-100) Arterial Blood pH 7.42 (7.380-7.420) Arterial Blood Partial Pressure CO2 29 mmHg (38-42) Arterial Blood Partial Pressure O2 48 mmHg (61-120) Arterial Blood Oxygen Content 12.0 Vol % (12.0-20.0) Arterial Blood Carboxyhemoglobin 1.5 % (0-4) Arterial Blood Methemoglobin 1.2 % (0-2) Blood Gas Hemoglobin 11.4 G/DL (12.0-16.0) Oxygen Delivery Device Non-Rebreathing Mask Blood Gas Liter Flow 15 L/M Blood Gas Inspired Oxygen 100 % Cord Blood HCO3 24 mmol/L (21-29) Cord Arterial Blood pH 7.15 (7.14-7.42) Cord Arterial Blood PCO2 70 mmHG (34-78) Cord Arterial Blood PO2 3 mmHG (3.0-40.0) Objective Remarks P 111, BP 125/54, R 16, Sats 99% FiO2 0.30 Head: Normal. Neck: Supple, orally intubated. Lungs: Clear, no wheezes. Good air movement. Heart: NL S1S2, no m,r. Abdomen: Nondistended, soft. Lower transverse incision. Neuro: Moves 4 limbs. Nodes head to questions. A/P Assessment and Plan Assessment: 1. Preeclampsia. 2. S/P delivery 12/03. 3. Hypertension. 4. Hypoxemic Respiratory Failure. 5. Pulmonary edema. Plan: 1. PRVC vent mode -> extubate 2. PEEP5 3. Lytes 4. Lactic acid. 5. ABG. 6. No iv fluid. 7. Hold lasix 8. Check Mag level. 9. d/c Fentanyl analgesia. 10. Continue Mag gtt for 24 hours. Overall impression: Much improved, try to extubate. No seizures. Alert, follows commands. Nicholas Davison MD Dec 04, 2016 07:21
[2016-12-04] MEDS: CHLORHEXIDINE 0.12% (ORAL KIT) 15 ML CUP MT SCH ×2 (08:00→20:00)
[2016-12-04] MEDS: SODIUM CHLORIDE 0.9% FLUSH 10 ML FLUSH IV FLUSH SCH ×2 (09:00→20:49)
[2016-12-04] MEDS: MULTIVIT/MIN/PREN/FOL AC/IRON PRENATAL TAB PO SCH (09:55)
--- NOTE | 2016-12-04 10:26 | HHI.CCPN ---
Subjective Remarks/Hospital Course 36 y/o 35 weeks gestation mother developed hypertension over past several days which escalated to fluid retention, pulmonary edema, and preeclampsia. She was treated with magnesium, diuretics, and intubation and taken straight to the OR for delivery. CXR with diffuse interstitial edema. I met her on her arrival to the [facility]. Pupils 4 mm, nonreactive. Recent relaxant by history. BP 160s. 12/04: FiO2 0.30. Looks strong on SBTs 5/5. Lytes acceptable. Infiltrate left lung. Warm, well perfused. Objective Vital Signs Date Time Temp Pulse Resp B/P (MAP) Pulse Ox O2 Delivery O2 Flow Rate FiO2 12/04/16 08:25 98 Nasal Cannula 2.00 12/04/16 08:00 121 12/04/16 08:00 35 12/04/16 08:00 98.7 18 127/73 (91) Intake and Output 12/04/16 12/04/16 12/05/16 08:00 16:00 00:00 Intake Total 325 ml Output Total 450 ml Balance -125 ml Result Diagram: 12/04/16 0500 12/04/16 0500 Other Results Laboratory Tests Test 12/03/16 13:15 12/03/16 13:45 Blood Gas Puncture Site RT RADIAL CORD BLOOD Blood Gas Patient Temperature 98.6 Blood Gas HCO3 18 mmol/L (22-26) Blood Gas Base Excess -5.4 mmol/L (-2-2) -4.2 mmol/L (-2-2) Blood Gas Oxygen Saturation 75 % (90-100) 2 % (90-100) Arterial Blood pH 7.42 (7.380-7.420) Arterial Blood Partial Pressure CO2 29 mmHg (38-42) Arterial Blood Partial Pressure O2 48 mmHg (61-120) Arterial Blood Oxygen Content 12.0 Vol % (12.0-20.0) Arterial Blood Carboxyhemoglobin 1.5 % (0-4) Arterial Blood Methemoglobin 1.2 % (0-2) Blood Gas Hemoglobin 11.4 G/DL (12.0-16.0) Oxygen Delivery Device Non-Rebreathing Mask Blood Gas Liter Flow 15 L/M Blood Gas Inspired Oxygen 100 % Cord Blood HCO3 24 mmol/L (21-29) Cord Arterial Blood pH 7.15 (7.14-7.42) Cord Arterial Blood PCO2 70 mmHG (34-78) Cord Arterial Blood PO2 3 mmHG (3.0-40.0) Objective Remarks P 111, BP 125/54, R 16, Sats 99% FiO2 0.30 Head: Normal. Neck: Supple, orally intubated. Lungs: Clear, no wheezes. Good air movement. Heart: NL S1S2, no m,r. Abdomen: Nondistended, soft. Lower transverse incision. Neuro: Moves 4 limbs. Nodes head to questions. A/P Assessment and Plan Assessment: 1. Preeclampsia. 2. S/P delivery 12/03. 3. Hypertension. 4. Hypoxemic Respiratory Failure. 5. Pulmonary edema. Plan: 1. PRVC vent mode -> extubate 2. PEEP5 3. Lytes 4. Lactic acid. 5. ABG. 6. No iv fluid. 7. Hold lasix 8. Check Mag level. 9. d/c Fentanyl analgesia. 10. Continue Mag gtt for 24 hours. Overall impression: Much improved, try to extubate. No seizures. Alert, follows commands. -> extubated early a.m. and breathing comfortably. May transfer. Nicholas Davison MD Dec 04, 2016 10:26
--- NOTE | 2016-12-04 11:56 | HHI.OB ---
Subjective Post Day: 1 Remarks doing much better jus t on nasal cannula Objective Vitals/I&O Vital Signs Date Time Temp Pulse Resp B/P (MAP) Pulse Ox O2 Delivery O2 Flow Rate FiO2 12/04/16 08:25 98 Nasal Cannula 2.00 12/04/16 08:25 97 Nasal Cannula 2 12/04/16 08:25 97 Nasal Cannula 2.00 12/04/16 08:00 121 12/04/16 08:00 35 12/04/16 08:00 98.7 121 18 127/73 (91) 100 12/04/16 07:39 99 30 12/04/16 06:00 114 16 129/60 (83) 100 12/04/16 06:00 114 12/04/16 04:06 99 30 12/04/16 04:00 108 12/04/16 04:00 97.5 102 16 119/76 (90) 100 12/04/16 04:00 40 12/04/16 02:00 109 12/04/16 00:50 100 40 12/04/16 00:00 109 12/04/16 00:00 40 12/04/16 00:00 98.8 101 16 119/71 (87) 100 12/03/16 23:03 100 50 12/03/16 22:00 110 12/03/16 21:51 100 50 12/03/16 20:00 Mechanical Ventilator 70 12/03/16 20:00 116 12/03/16 20:00 98.8 116 16 98/69 (79) 100 12/03/16 20:00 50 12/03/16 16:36 100 70 12/03/16 16:00 98.6 123 16 159/99 (119) 100 12/03/16 16:00 123 12/03/16 15:00 70 12/03/16 14:50 92 100 12/03/16 14:30 96 100 12/03/16 13:03 40 Intake & Output 12/04/16 12/04/16 07:00 19:00 Intake Total 325 ml Output Total 450 ml Balance -125 ml Intake Oral 0 ml IV Total 325 ml Output Urine Total 450 ml Gastric Drainage Total 0 ml # Bowel Movements 0 Objective Remarks GENERAL: Well-nourished, well-developed patient. ABDOMEN/GI: Abdomen soft, non-tender. Fundus: Firm, non-tender at umbilicus. GENITOURINARY: Light to moderate bleeding. EXTREMITIES: No cyanosis or edema, non-tender, without signs of DVT. Medications and IVs Current Medications Medications (Trade) Dose Ordered Sig/Niels Route Start Time Stop Time Status Last Admin (Tylenol) 650 mg Q4H PRN PO 12/03/16 11:30 (Tylenol) 650 mg Q4H PRN PO 12/03/16 13:00 (Zofran Odt) 4 mg Q6H PRN PO 12/03/16 12:30 (Stuartnatal Plus 3 ) 1 tab DAILY PO 12/04/16 09:00 12/04/16 09:55 Oxytocin 500 ml @ 100 mls/hr UNSCH X1 PRN IV 12/04/16 00:15 12/05/16 00:14 (NS Flush) 2 ml BID IV FLUSH 12/03/16 21:00 12/04/16 09:00 (NS Flush) 2 ml UNSCH PRN IV FLUSH 12/03/16 14:15 (Motrin) 600 mg Q6H PRN PO 12/03/16 14:15 (Toradol Inj) 30 mg Q6H PRN IM 12/03/16 14:15 12/04/16 14:14 12/04/16 08:30 (Percocet 5-325 Mg) 1 tab Q4H PRN PO 12/03/16 14:15 (Percocet 5-325 Mg) 2 tab Q4H PRN PO 12/03/16 14:15 (M-M-R Ii Inj) 0.5 ml ONCE ONCE SQ 12/04/16 16:00 12/04/16 16:01 (Boostrix Inj) 0.5 ml ONCE ONCE IM 12/04/16 16:00 12/04/16 16:01 (Peridex 0.12% Liq) 15 ml BID@08,20 MT 12/03/16 20:00 12/04/16 08:00 (Pepcid Inj) 20 mg Q12H IV PUSH 12/03/16 15:00 12/04/16 04:11 (Dilaudid Pf Inj) 1 mg Q4H PRN IV PUSH 12/03/16 15:15 Potassium Chloride 100 ml @ 50 mls/hr Q2H PRN IV 12/03/16 15:15 Potassium Chloride 100 ml @ 50 mls/hr Q2H PRN IV 12/03/16 15:15 (K-Lyte Cl Eff) 50 meq UNSCH PRN PO 12/03/16 15:15 Potassium Chloride 100 ml @ 25 mls/hr UNSCH PRN IV 12/03/16 15:15 Potassium Chloride 100 ml @ 50 mls/hr Q2H PRN IV 12/03/16 15:15 (Mag-Ox) 800 mg UNSCH PRN PO 12/03/16 15:15 (K-Phos) 2,000 mg Q4H PRN PO 12/03/16 15:15 Sodium Phosphate 30 mmol/Sodium Chloride 250 ml @ 42 mls/hr UNSCH PRN IV 12/03/16 15:15 (K-Phos) 2,000 mg UNSCH PRN PO/TUBE 12/03/16 15:15 Potassium Phosphate 30 mmol/ Sodium Chloride 260 ml @ 42 mls/hr UNSCH PRN IV 12/03/16 15:15 Propofol 100 ml @ 2.721 mls/ hr TITRATE PRN IV 12/03/16 15:30 12/04/16 04:34 Fentanyl Citrate 250 ml @ 5 mls/hr TITRATE PRN IV 12/03/16 15:30 12/03/16 15:30 (Trandate Inj) 20 mg Q3H PRN IV PUSH 12/03/16 16:00 (Apresoline Inj) 10 mg Q2H PRN IV PUSH 12/03/16 16:00 Assessment/Plan Assessment and Plan PPD #1 dc magnesium and transfer to [facility] [place],Leo Jeff MD Dec 04, 2016 11:56
[2016-12-04] MEDS: oxyCODONE/ACETAMINOPHEN 5 MG/325 MG TAB PO PRN ×3 (14:29→22:54)
[2016-12-04] MEDS ORDERED: DIPHTH/TETANUS/ACEL PERTUSSIS (BOOSTER) 0.5 ML VIAL/PFS IM ONE (16:00)
[2016-12-04] MEDS ORDERED: MEASLES, MUMPS, RUBELLA VACCINE 0.5 ML VIAL SQ ONE (16:00)
[2016-12-04] MEDS ORDERED: diphenhydrAMINE HCL 25 MG CAP PO PRN (22:45)
[2016-12-05] VITALS (24 sets, daily range): BP systolic 131–146; BP diastolic 87–99; PULSE 116–133; RESP 16–22; TEMP 97.9–99.6
[2016-12-05] MEDS: FAMOTIDINE 20 MG/2 ML VIAL IV PUSH SCH (03:00)
[2016-12-05 06:43] LABS: AUTOMATED NEUTROPHIL # 10.2 TH/MM3 (1.8-7.7); BASOPHIL % 0.1 % (0.0-2.0); EOSINOPHIL # 0.1 TH/MM3 (0-0.4); EOSINOPHIL % 0.7 % (0.0-4.0); LYMPH % 10.8 % (9.0-44.0); LYMPHOCYTE # 1.4 TH/MM3 (1.0-4.8); MEAN CELL VOLUME 73.5 FL (80.0-100.0); MEAN CORPUSCULAR HEMOGLOBIN 23.1 PG (27.0-34.0); MEAN CORPUSCULAR HGB CONC 31.5 % (32.0-36.0); MONO % 7.8 % (0.0-8.0); NEUT % 80.6 % (16.0-70.0); PLATELET COUNT 158 TH/MM3 (150-450); RED BLOOD COUNT 2.38 MIL/MM3 (4.00-5.30); RED CELL DISTRIBUTION WIDTH 19.8 % (11.6-17.2); WHITE BLOOD COUNT 12.7 TH/MM3 (4.0-11.0)
[2016-12-05 06:44] LABS: HEMO FLAGS DIFF FINAL
[2016-12-05 06:47] LABS: HEMATOCRIT 17.5 % (35.0-46.0)
[2016-12-05 07:06] LABS: BICARBONATE 27.5 MEQ/L (21.0-32.0); POTASSIUM 3.4 MEQ/L (3.5-5.1)
[2016-12-05] MEDS: oxyCODONE/ACETAMINOPHEN 5 MG/325 MG TAB PO PRN ×4 (07:25→21:14)
[2016-12-05] MEDS: CHLORHEXIDINE 0.12% (ORAL KIT) 15 ML CUP MT SCH (07:56)
[2016-12-05] MEDS: MULTIVIT/MIN/PREN/FOL AC/IRON PRENATAL TAB PO SCH (07:57)
[2016-12-05] MEDS ORDERED: SODIUM CHLOR 0.9% 250 ML INJ 250 ML IV ONE (08:15)
[2016-12-05] MEDS: SODIUM CHLORIDE 0.9% FLUSH 10 ML FLUSH IV FLUSH SCH (09:00)
--- NOTE | 2016-12-05 10:09 | HHI.OB ---
Subjective Post Day: 2 Remarks patient is improving daily and labs are stable except Hgb of 5.5 Objective Vitals/I&O Vital Signs Date Time Temp Pulse Resp B/P (MAP) Pulse Ox O2 Delivery O2 Flow Rate FiO2 12/05/16 09:49 133 146/89 (108) 12/05/16 09:17 98.2 12/05/16 09:17 98.2 133 20 146/89 12/05/16 09:15 22 12/05/16 09:07 98.5 12/05/16 09:00 127 136/87 (103) 12/05/16 08:59 98.5 127 20 136/87 12/05/16 07:28 129 139/94 (109) 12/05/16 07:27 20 12/05/16 07:27 97.9 12/05/16 03:43 120 138/94 (109) 12/05/16 03:43 98.2 16 12/05/16 03:42 124 12/05/16 00:37 18 12/04/16 22:55 98.7 18 12/04/16 22:52 121 118/87 (97) 12/04/16 21:34 16 12/04/16 20:20 16 12/04/16 19:30 96 12/04/16 19:29 16 12/04/16 19:23 98.6 12/04/16 19:21 126 123/72 (89) 12/04/16 18:19 16 12/04/16 18:02 118 125/81 (96) 12/04/16 18:00 98.1 17 12/04/16 13:39 98.3 12/04/16 13:39 115 126/77 (93) 12/04/16 13:35 125 96 12/04/16 13:33 18 12/04/16 12:00 120 12/04/16 12:00 98.9 120 19 118/81 (93) 97 Objective Remarks lungs clear GENERAL: Well-nourished, well-developed patient. ABDOMEN/GI: Abdomen soft, non-tender. Fundus: Firm, non-tender at umbilicus. GENITOURINARY: Light to moderate bleeding. EXTREMITIES: No cyanosis or edema, non-tender, without signs of DVT. Medications and IVs Current Medications Medications (Trade) Dose Ordered Sig/Niels Route Start Time Stop Time Status Last Admin (Tylenol) 650 mg Q4H PRN PO 12/03/16 11:30 12/04/16 20:30 (Zofran Odt) 4 mg Q6H PRN PO 12/03/16 12:30 (Stuartnatal Plus 3 ) 1 tab DAILY PO 12/04/16 09:00 12/04/16 09:55 (NS Flush) 2 ml BID IV FLUSH 12/03/16 21:00 12/04/16 20:49 (NS Flush) 2 ml UNSCH PRN IV FLUSH 12/03/16 14:15 (Motrin) 600 mg Q6H PRN PO 12/03/16 14:15 (Percocet 5-325 Mg) 1 tab Q4H PRN PO 12/03/16 14:15 12/04/16 22:54 (Percocet 5-325 Mg) 2 tab Q4H PRN PO 12/03/16 14:15 12/05/16 07:25 (Trandate Inj) 20 mg Q3H PRN IV PUSH 12/03/16 16:00 (Apresoline Inj) 10 mg Q2H PRN IV PUSH 12/03/16 16:00 (Benadryl) 25 mg Q4H PRN PO 12/04/16 22:45 12/04/16 22:54 Assessment/Plan Assessment and Plan PPD # 2 doing much better except anemia and is receiving 2 units PRBC Leo Carson MD Dec 05, 2016 10:08
--- NOTE | 2016-12-05 10:12 | HHI.DCPOC ---
Discharge Care Plan Diagnosis: (1) Flash pulmonary edema Report Symptoms to Your Doctor -Temperature above 100.5 degrees -Redness, of incision or excessive or foul smelling drainage -Unusual pain or calf pain -Increased vaginal bleeding -Painful or difficulty urinating -Feelings of extreme sadness or anxiety after 2 weeks Goals to Promote Your Health * To prevent worsening of your condition and complications * To maintain your health at the optimal level Directions to Meet Your Goals Take your medications as prescribed Follow your dietary instruction Follow activity as directed Ensure plenty of rest for recovery Drink fluids for hydration Keep your appointments as scheduled Take your immunizations and boosters as scheduled If your symptoms worsen call your PCP, if no PCP go to Urgent Care Center or Emergency Room Smoking is Dangerous to Your Health. Avoid second hand smoke Call the 24-hour crisis hotline for domestic abuse at Leo Carson MD Dec 05, 2016 10:12
[2016-12-05] MEDS: IBUPROFEN 600 MG TAB PO PRN ×2 (16:36→22:57)
[2016-12-05 17:55] LABS: HEMATOCRIT 25.4 % (35.0-46.0); REVIEW FLAG FINAL
[2016-12-05] MEDS ORDERED: NIFEdipine 10 MG CAP PO PRN (22:15)
[2016-12-06] VITALS (33 sets, daily range): BP systolic 130–162; BP diastolic 91–104; PULSE 105–144; RESP 17–38; TEMP 98–98.7; O2SAT 87–100
[2016-12-06] MEDS ORDERED: RESP: ALBUTEROL 2.5 MG/3 ML NEB (PRN) INH (00:15)
[2016-12-06] MEDS: oxyCODONE/ACETAMINOPHEN 5 MG/325 MG TAB PO PRN ×4 (01:05→21:23)
[2016-12-06] MEDS ORDERED: FUROSEMIDE 20 MG TAB PO SCH (01:30)
[2016-12-06] MEDS ORDERED: FUROSEMIDE 40 MG/4 ML VIAL ONE (03:20)
[2016-12-06] MEDS ORDERED: FUROSEMIDE 20 MG/2 ML VIAL IV PUSH SCH (03:30)
--- NOTE | 2016-12-06 03:30 | RADRPT ---
EXAM DATE/TIME: 12/06/2016 03:11 [facility] COMPARISON: CHEST SINGLE AP, December 04, 2016, 3:18. INDICATIONS : Shortness of breath, possible pulmonary disease. MEDICAL HISTORY : None. SURGICAL HISTORY : section. ENCOUNTER: Subsequent ACUITY: 4 - 6 days PAIN SCORE: Non-responsive. LOCATION: Bilateral chest FINDINGS: A single portable frontal view of the chest shows bibasilar intralobular infiltrates as well as a rig ht upper lobe intraorbital infiltrate. These are new from the prior study. A tiny right effusion is n ew. No effusion on the left. Heart is normal in size. Bony structures are unremarkable. CONCLUSION: New bilateral pulmonary infiltrates and small right effusion. Amauri Copeland Jr., MD on December 06, 2016 at 3:28 Board Certified Radiologist. This report was verified electronically.
[2016-12-06 03:34] LABS: AUTOMATED NEUTROPHIL # 14.5 TH/MM3 (1.8-7.7); BASOPHIL % 0.1 % (0.0-2.0); EOSINOPHIL # 0.1 TH/MM3 (0-0.4); EOSINOPHIL % 0.5 % (0.0-4.0); HEMO FLAGS DIFF FINAL; LYMPH % 10.5 % (9.0-44.0); LYMPHOCYTE # 1.8 TH/MM3 (1.0-4.8); MEAN CELL VOLUME 78.2 FL (80.0-100.0); MEAN CORPUSCULAR HEMOGLOBIN 25.8 PG (27.0-34.0); NEUT % 82.9 % (16.0-70.0); PLATELET COUNT 206 TH/MM3 (150-450); RED BLOOD COUNT 3.45 MIL/MM3 (4.00-5.30); RED CELL DISTRIBUTION WIDTH 21.6 % (11.6-17.2); WHITE BLOOD COUNT 17.5 TH/MM3 (4.0-11.0)
[2016-12-06 03:48] LABS: BLOOD GAS BASE EXCESS -0.8 mmol/L (-2-2); BLOOD GAS CARBOXYHEMOGLOBIN 1.9 % (0-4); BLOOD GAS HCO3 23 mmol/L (22-26); BLOOD GAS METHEMOGLOBIN 1.1 % (0-2); BLOOD GAS O2 HGB SATURATION 92 % (90-100); BLOOD GAS OXYGEN CONTENT 11.9 Vol % (12.0-20.0); BLOOD GAS PCO2 33 mmHg (38-42); BLOOD GAS PO2 77 mmHg (61-120); BLOOD GAS TOTAL HGB 9.1 G/DL (12.0-16.0); CRITICAL VALUE NO; TEMP CORR TO 98.6
[2016-12-06 03:49] LABS: DRAW SITE RT RADIAL; FIO2 100 %; LITER FLOW 15 L/M; NUMBER OF ARTERIAL PUNCTURES 1; STAT YES; ULNAR PULSE PRESENT
[2016-12-06 03:51] LABS: ALT (GPT) 21 U/L (10-53); ANION GAP 11 MEQ/L (5-15); AST (GOT) 24 U/L (15-37); BICARBONATE 24.2 MEQ/L (21.0-32.0); BLOOD UREA NITROGEN 13 MG/DL (7-18); CHLORIDE 105 MEQ/L (98-107); GLOMERULAR FILTRATION RATE 115 ML/MIN (>89); POTASSIUM 3.2 MEQ/L (3.5-5.1); SODIUM (NA) 140 MEQ/L (136-145)
[2016-12-06 03:53] LABS: ALKALINE PHOSPHATASE 100 U/L (45-117); TOTAL BILIRUBIN ADULT 0.8 MG/DL (0.2-1.0)
[2016-12-06] MEDS ORDERED: RESP: ALBUTEROL 2.5 MG/IPRATROPIUM 0.5 MG NEB (PRN) NEB (04:00)
[2016-12-06] MEDS ORDERED: Vancomycin Consult Pharmacy 1 EA OTHER SCH (04:00)
--- NOTE | 2016-12-06 04:05 | HHI.PR ---
Subjective Remarks Patient admitted on 12/03 and had flash pulmonary edema and stat CS. She was intubated in ICU for 24 hours. She received 2 units PRBC for HGB 5.5 and now has hgb of greater than 8. She was doing well and at 0100 she developed cough and recurrent pulmonary edema. She has been off IV fluids and taking po. Minor placed 40 lasix given and non rebreather started with sat of 95%. ABG shows O2 of [address] Mcclure consulted and has seen the patient requested the patient be readmitted to ICU and echo ordered. Objective Vital Signs Date Time Temp Pulse Resp B/P (MAP) Pulse Ox O2 Delivery O2 Flow Rate FiO2 12/06/16 02:31 128 93 12/06/16 02:31 91 12/06/16 01:15 120 12/06/16 01:15 96 12/06/16 01:00 22 12/06/16 00:45 96 Nasal Cannula 2.00 12/06/16 00:40 97 12/06/16 00:28 114 12/06/16 00:15 94 12/06/16 00:00 98.7 119 22 147/91 (109) 12/06/16 00:00 92 12/05/16 22:00 97.9 12/05/16 21:56 138/95 (109) 12/05/16 21:56 123 20 12/05/16 21:45 123 20 138/95 (109) 12/05/16 20:00 119 18 12/05/16 20:00 98.3 12/05/16 20:00 145/96 (112) 12/05/16 17:42 98.2 12/05/16 16:30 99.6 121 16 131/96 (108) 12/05/16 16:00 98.0 12/05/16 15:38 118 132/96 (108) 12/05/16 15:35 118 18 132/96 12/05/16 12:40 116 135/92 (106) 12/05/16 12:40 98.0 116 18 135/92 12/05/16 12:40 98.0 12/05/16 12:30 98.0 12/05/16 12:20 98.0 120 20 137/99 12/05/16 12:20 120 137/99 (112) 12/05/16 12:06 98.5 124 19 138/96 12/05/16 12:00 124 138/96 (110) 12/05/16 09:49 133 146/89 (108) 12/05/16 09:17 98.2 12/05/16 09:17 98.2 133 20 146/89 12/05/16 09:15 22 12/05/16 09:07 98.5 12/05/16 09:00 127 136/87 (103) 12/05/16 08:59 98.5 127 20 136/87 12/05/16 07:28 129 139/94 (109) 12/05/16 07:27 20 12/05/16 07:27 97.9 12/05/16 03:43 120 138/94 (109) 12/05/16 03:43 98.2 16 I/O 12/05/16 12/05/16 12/05/16 12/06/16 12/06/16 12/06/16 07:00 15:00 23:00 07:00 15:00 23:00 Intake Total 400 ml 400 ml Balance 400 ml 400 ml Packed Cells 400 ml 400 ml Result Diagram: 12/06/16 0325 12/05/16 0611 Objective Remarks GENERAL: breathing 30 x per min SKIN: Warm and dry. HEAD: Normocephalic.. NECK: Supple, trachea midline. No JVD or lymphadenopathy. CARDIOVASCULAR: Regular rate and rhythm without murmurs, gallops, or rubs. RESPIRATORY: tachypnea and use of accessory muscles, crackles throughout lungs bilateral and equal GASTROINTESTINAL: Abdomen soft, non-tender, nondistended. normal lochia MUSCULOSKELETAL: No cyanosis, or edema. BACK: Nontender without obvious deformity. No CVA tenderness. Assessment and Plan Problem List: (1) Delivered by section ICD Codes: O82 - Encounter for delivery without indication (2) Pulmonary edema ICD Codes: J81.1 - Chronic pulmonary edema Status: Acute Plan: hospitalist consult and transfer to ICU Leo Carson MD Dec 06, 2016 04:05
--- NOTE | 2016-12-06 04:15 | PD.CONS ---
[facility] By Dr[facility] Carson Reason for Consult Flash pulmonary addison Primary Care Physician No Primary Care Physician Diagnoses: History of Present Illness 36 y/o female with a history of a c section on 12/02 due to flash pulmonary edema and preeclampsia, she was then sent to the ICU and was intubated. She was extubated on 12/04 and was doing well, today she received 2 units of PRBCs for a hgb of 5.5 and she has been drinking fluids at will. At about 1 am she began to have trouble breathing and began to cough. Lasix 20mg POx1 was given at this time along with a nebulizer treatment. By 3:30 am she did not improve and [facility] was consulted. Patient was seen and examined on the OB floor and it was felt at this time the patient should be transferred back to the ICU for closer monitoring. She is sating 94% on a non rebreather, another 40 IV lasix was given , and a chest x ray was ordered. Prior to transfer to the unit patient was placed on bipap. Patient states she feels better with the bipap on. Denies any chest pain, nausea, or vomiting. Review of Systems Except as stated in HPI: all other systems reviewed are Neg Past Family Social History Allergies: Coded Allergies: No Known Allergies (Verified , 10/24/16) Past Medical History Patient denies any medical history Prior term pregnancies x 2 1st trimester miscarriages x 2 Past Surgical History C section Reported Medications Reported Meds & Active Scripts Active Reported Percocet (Oxycodone W/ Acetaminophen) 1 Tab Tab 1-2 MT Q4HPRN No Current Meds (Miscellaneous Medication) Misc Active Ordered Medications Current Medications Medications (Trade) Dose Ordered Sig/Niels Route Start Time Stop Time Status Last Admin (Tylenol) 650 mg Q4H PRN PO 12/03/16 11:30 12/04/16 20:30 (Zofran Odt) 4 mg Q6H PRN PO 12/03/16 12:30 (Stuartnatal Plus 3 ) 1 tab DAILY PO 12/04/16 09:00 12/04/16 09:55 (NS Flush) 2 ml BID IV FLUSH 12/03/16 21:00 12/04/16 20:49 (NS Flush) 2 ml UNSCH PRN IV FLUSH 12/03/16 14:15 (Motrin) 600 mg Q6H PRN PO 12/03/16 14:15 12/05/16 22:57 (Percocet 5-325 Mg) 1 tab Q4H PRN PO 12/03/16 14:15 12/04/16 22:54 (Percocet 5-325 Mg) 2 tab Q4H PRN PO 12/03/16 14:15 12/06/16 01:05 (Trandate Inj) 20 mg Q3H PRN IV PUSH 12/03/16 16:00 (Apresoline Inj) 10 mg Q2H PRN IV PUSH 12/03/16 16:00 (Benadryl) 25 mg Q4H PRN PO 12/04/16 22:45 12/04/16 22:54 (Procardia) 10 mg Q1H PRN PO 12/05/16 22:15 (Lasix Inj) 20 mg STAT IV PUSH 12/06/16 03:30 12/06/16 05:00 12/06/16 03:27 (Lasix Inj) 40 mg BID@,18 IV PUSH 12/06/16 09:00 Cefepime HCl 2000 mg/Sodium Chloride 100 ml @ 200 mls/hr Q8H IV 12/06/16 04:00 UNV Vancomycin HCl 1350 mg/Sodium Chloride 513.5 ml @ 250 mls/hr ONCE ONCE IV 12/06/16 04:00 12/06/16 06:03 UNV Pharmacy Profile Note 0 ml @ 0 mls/hr UNSCH OTHER 12/06/16 04:00 UNV (Duoneb Neb) 1 ampule Q6HR NEB NEB 12/06/16 04:00 UNV (Duoneb Neb) 1 ampule Q2HR NEB PRN NEB 12/06/16 04:00 UNV Family History Patient denies any family history. Social History Patient denies any tobacco, alcohol or illicit drug use Physical Exam Vital Signs Vital Signs Date Time Temp Pulse Resp B/P (MAP) Pulse Ox O2 Delivery O2 Flow Rate FiO2 12/06/16 02:31 128 93 12/06/16 02:31 91 12/06/16 01:15 120 12/06/16 01:15 96 12/06/16 01:00 22 12/06/16 00:45 96 Nasal Cannula 2.00 12/06/16 00:40 97 12/06/16 00:28 114 12/06/16 00:15 94 12/06/16 00:00 98.7 119 22 147/91 (109) 12/06/16 00:00 92 12/05/16 22:00 97.9 12/05/16 21:56 138/95 (109) 12/05/16 21:56 123 20 12/05/16 21:45 123 20 138/95 (109) 12/05/16 20:00 119 18 12/05/16 20:00 98.3 12/05/16 20:00 145/96 (112) 12/05/16 17:42 98.2 12/05/16 16:30 99.6 121 16 131/96 (108) 12/05/16 16:00 98.0 12/05/16 15:38 118 132/96 (108) 12/05/16 15:35 118 18 132/96 12/05/16 12:40 116 135/92 (106) 12/05/16 12:40 98.0 116 18 135/92 12/05/16 12:40 98.0 12/05/16 12:30 98.0 12/05/16 12:20 98.0 120 20 137/99 12/05/16 12:20 120 137/99 (112) 12/05/16 12:06 98.5 124 19 138/96 12/05/16 12:00 124 138/96 (110) 12/05/16 09:49 133 146/89 (108) 12/05/16 09:17 98.2 12/05/16 09:17 98.2 133 20 146/89 12/05/16 09:15 22 12/05/16 09:07 98.5 12/05/16 09:00 127 136/87 (103) 12/05/16 08:59 98.5 127 20 136/87 12/05/16 07:28 129 139/94 (109) 12/05/16 07:27 20 12/05/16 07:27 97.9 Physical Exam GENERAL: This is a well-nourished, well-developed patient, in moderate respiratory distress SKIN: No rashes, ecchymoses or lesions. HEAD: Atraumatic. Normocephalic. EYES: Pupils equal round and reactive. ENT: Nose without bleeding, purulent drainage or septal hematoma. Airway patent. NECK: Trachea midline. No JVD CARDIOVASCULAR: tachycardic rate and rhythm without murmurs, gallops, or rubs. RESPIRATORY: tachypnea, crackles throughout all lung sandoval. Currently on a non rebreather. 02 94% GASTROINTESTINAL: Abdomen soft, non-tender, nondistended. MUSCULOSKELETAL: Extremities without clubbing, cyanosis, or edema. No calf tenderness. NEUROLOGICAL: Awake and alert. Motor and sensory grossly within normal limits. Normal speech. Laboratory Laboratory Tests Test 12/05/16 06:11 12/05/16 17:30 12/06/16 03:25 12/06/16 03:30 White Blood Count 12.7 17.5 Red Blood Count 2.38 3.45 Hemoglobin 5.5 8.6 8.9 Hematocrit 17.5 25.4 27.0 Mean Corpuscular Volume 73.5 78.2 Mean Corpuscular Hemoglobin 23.1 25.8 Mean Corpuscular Hemoglobin Concent 31.5 33.0 Red Cell Distribution Width 19.8 21.6 Platelet Count 158 206 Mean Platelet Volume 9.5 9.3 Neutrophils (%) (Auto) 80.6 82.9 Lymphocytes (%) (Auto) 10.8 10.5 Monocytes (%) (Auto) 7.8 6.0 Eosinophils (%) (Auto) 0.7 0.5 Basophils (%) (Auto) 0.1 0.1 Neutrophils # (Auto) 10.2 14.5 Lymphocytes # (Auto) 1.4 1.8 Monocytes # (Auto) 1.0 1.0 Eosinophils # (Auto) 0.1 0.1 Basophils # (Auto) 0.0 0.0 CBC Comment DIFF FINAL DIFF FINAL Differential Comment Blood Urea Nitrogen 13 13 Creatinine 0.67 0.70 Random Glucose 79 96 Calcium Level 7.7 7.8 Sodium Level 141 140 Potassium Level 3.4 3.2 Chloride Level 106 105 Carbon Dioxide Level 27.5 24.2 Anion Gap 8 11 Estimat Glomerular Filtration Rate 121 115 Albumin 2.1 Aspartate Amino Transf (AST/SGOT) 24 Alanine Aminotransferase (ALT/SGPT) 21 Blood Gas Puncture Site RT RADIAL Blood Gas Patient Temperature 98.6 Blood Gas HCO3 23 Blood Gas Base Excess -0.8 Blood Gas Oxygen Saturation 92 Arterial Blood pH 7.46 Arterial Blood Partial Pressure CO2 33 Arterial Blood Partial Pressure O2 77 Arterial Blood Oxygen Content 11.9 Arterial Blood Carboxyhemoglobin 1.9 Arterial Blood Methemoglobin 1.1 Blood Gas Hemoglobin 9.1 Oxygen Delivery Device Non-Rebreathing Mask Blood Gas Liter Flow 15 Blood Gas Inspired Oxygen 100 Date/Time Source Procedure Growth Status 12/03/16 11:10 Urine Clean Catch Urine Culture - Final 50-100,000 CFU/ML MIXED GRAM POSITIVE... Complete Result Diagram: 12/06/16 0325 12/06/16 0325 Imaging Last Impressions Chest X-Ray 12/06/16 0000 Signed Impressions: Service Date/Time: Tuesday, December 06, 2016 03:11 - CONCLUSION: New bilateral pulmonary infiltrates and small right effusion. Amauri Copeland Jr., MD Abdomen X-Ray 12/03/16 0000 Signed Impressions: Service Date/Time: Saturday, December 03, 2016 14:04 - CONCLUSION: No metallic foreign bodies identified within the abdomen or pelvis. Brendan Frank MD Assessment and Plan Problem List: (1) Ventilator associated pneumonia ICD Code: J95.851 - Ventilator associated pneumonia (2) Pulmonary edema ICD Code: J81.1 - Chronic pulmonary edema Status: Acute Assessment and Plan 36 y/o female who is post c section and intubation, [facility] was consulted for respiratory distress. Pulmonary edema, suspected due to fluid overload from blood products Chest x ray reviewed and shows bilateral pulmonary infiltrates and small right effusion -Lasix 40mg IV BID -2d echo ordered -Bipap, wean as tolerated Ventilator associated pneumonia with leukocytosis, patient s/p extubation 48 hrs ago, WBC 17.5 -IV antibiotics: Cefepime and vancomycin -Duonebs scheduled and prn Status post c section -Managed by OB DVT prophylaxis: SCDs Discussed Condition With Patient Jamia Jimenez DARSHAN Dec 06, 2016 04:15
[2016-12-06] MEDS ORDERED: POTASSIUM CHLORIDE 10 MEQ CONTROLLED RELEASE TAB PO ONE ×2 (05:30→18:00)
[2016-12-06] MEDS: CEFEPIME INJ 2,000 MG in SODIUM CHLORIDE 0.9% INJ 100 ML IV SCH ×3 (05:32→21:00)
[2016-12-06] MEDS ORDERED: VANCOMYCIN INJ 1,350 MG in SODIUM CHLORID 0.9% 500 ML INJ 500 ML IV ONE (06:00)
[2016-12-06] MEDS ORDERED: CHLORHEXIDINE GLUCONATE 2 % 1 PACK (2 CLOTHS)(extra cloths) TOPICAL PRN (06:00)
[2016-12-06] MEDS ORDERED: POTASSIUM CHLORIDE 20 MEQ PWD PACKET PO ONE (08:30)
--- NOTE | 2016-12-06 09:10 | MP ---
cc: ANIKA CARSON M.D. DATE OF ADMISSION 12/03/2016 DATE OF SURGERY 12/03/2016 PROCEDURE Primary low transverse section. PREOPERATIVE DIAGNOSIS Pulmonary edema with preeclampsia at 36 weeks. POSTOPERATIVE DIAGNOSIS Pulmonary edema with preeclampsia at [address] Anika Carson ANESTHESIA General. COMPLICATIONS None. FINDINGS Mother was in an acute distress with hypoxia ABG. Saturation in the 60-80 range despite 100% oxygen. Fetus was delivered breech presentation, 35 weeks, 6 days. PROCEDURE IN DETAIL After informed consent, the patient was taken to the operating room where she was placed under general anesthesia. She was prepped and draped prior to putting her under general anesthesia with Betadine in a quick fashion. After the patient was under general anesthesia, a Pfannenstiel skin incision was carried sharply through the skin to the fascia. The fascia was opened bluntly with a scalpel and traction. The peritoneum was entered and the incision was extended laterally using blunt traction. A uterine incision was then made sharply into the uterine cavity in the lower uterine segment. It was thickened secondary to a non-laboring patient. We entered the uterus. Clear fluid was noted. The blood from the uterus was noted to be dark. A hand was placed into the uterus. The infant was in a breech presentation. A foot was grasped, delivered up to the level of the hips. The second leg was delivered and then the baby was delivered up to the level of the scapulae. The 's arms delivered easily and using Marceau maneuver and Dr. Luong performing fundal pressure, the 's head readily delivered. The cord was clamped and cut and was handed to pediatrics in attendance. Cord blood and cord gas were collected. Placenta was delivered manually. The uterus is quickly closed in a running locked stitch of chromic suture. The uterus was placed back in the abdomen and noted to be hemostatic. The fascia was closed with Vicryl suture. The skin was closed with skin sushant. The patient tolerated the procedure well. Air saturations at the end of the case on 100% were greater than 80%. The patient was being transferred to the Intensive Care Unit for care for preeclampsia/pulmonary edema. The patient did have urine output during the case, approximately 30 cc, seemed to be lightening and not as concentrated as on admission. The was doing well with Apgars of 8 and 9. Weight was 5 pounds, 5 ounces, and was going to the regular nursery at this time. Mother will be transferred to the intensive care unit. Anika Carson MD JM/SSB /2:06 PM /8:39 AM
[2016-12-06] MEDS: SODIUM CHLORIDE 0.9% FLUSH 10 ML FLUSH IV FLUSH SCH ×2 (09:20→21:25)
[2016-12-06] MEDS: FUROSEMIDE 40 MG/4 ML VIAL IV PUSH SCH ×2 (09:20→17:43)
[2016-12-06] MEDS: RESP: ALBUTEROL 2.5 MG/IPRATROPIUM 0.5 MG NEB (SCH) NEB ×3 (09:41→20:56)
--- NOTE | 2016-12-06 16:42 | ECHRPT ---
Indication: chf CONCLUSIONS The left ventricular systolic function is severely reduced with an estimated ejection fraction in th e range of 25-30%. Normal left ventricular size. Mild concentric left ventricular hypertrophy. Mild mitral valve regurgitation. There is mild tricuspid valve regurgitation. There is estimated moderate pulmonary hypertension present (range 50-60 mmHg). BP: / HR: Rhythm: MEASUREMENTS (Male / Female) Normal Values Technical Quality:Good 2D ECHO LV Diastolic Diameter PLAX 5.3 cm 4.2 - 5.9 / 3.9 - 5.3 cm LV Systolic Diameter PLAX 4.8 cm IVS Diastolic Thickness 1.3 cm 0.6 - 1.0 / 0.6 - 0.9 cm LVPW Diastolic Thickness 1.2 cm 0.6 - 1.0 / 0.6 - 0.9 cm LV Relative Wall Thickness 0.5 RV Internal Dim ED PLAX 1.7 cm DOPPLER LV E' Lateral Velocity 8.4 cm/s LV E' Septal Velocity 11.5 cm/s TR Peak Velocity 324.0 cm/s TR Peak Gradient 42.0 mmHg FINDINGS LEFT VENTRICLE The left ventricular systolic function is severely reduced with an estimated ejection fraction in th e range of 25-30%. Normal left ventricular size. Mild concentric left ventricular hypertrophy. RIGHT VENTRICLE Normal right ventricular size and systolic function. LEFT ATRIUM The left atrial size is normal. RIGHT ATRIUM The right atrial size is normal. ATRIAL SEPTUM Normal atrial septal thickness without atrial level shunting by limited color doppler interrogation. AORTA The aortic root and proximal ascending aorta are normal in size on limited imaging. MITRAL VALVE Structurally normal mitral valve. Mild mitral valve regurgitation. AORTIC VALVE Trileaflet aortic valve. No aortic valve stenosis or regurgitation. TRICUSPID VALVE Structurally normal tricuspid valve. There is mild tricuspid valve regurgitation. There is estimated moderate pulmonary hypertension present (range 50-60 mmHg). PULMONARY VALVE The pulmonary valve is not well visualized. VESSELS The inferior vena cava is normal in size. PERICARDIUM No pericardial effusion. Landry Casarez MD, FACC (Electronically Signed) Final Date:06 December 2016 16:41
[2016-12-06] MEDS: VANCOMYCIN 1,500 MG/NS 500 ML IV SCH ×2 (17:43)
--- NOTE | 2016-12-06 17:44 | HHI.PR ---
Subjective Remarks Echocardiogram shows EF of 25-30% and Pulmonary HTN. These findings are discussed with the patient. Etiology appears related to . Patient reports start of . Breast pumps to bedside being arranged. Objective Vital Signs Date Time Temp Pulse Resp B/P (MAP) Pulse Ox O2 Delivery O2 Flow Rate FiO2 12/06/16 15:52 97 Nasal Cannula 4.00 12/06/16 15:00 125 12/06/16 14:00 122 12/06/16 13:00 126 12/06/16 12:00 132 12/06/16 12:00 98.0 132 28 137/96 (110) 100 12/06/16 11:42 100 40 12/06/16 11:00 115 12/06/16 10:30 98 Bi-Pap 50 12/06/16 10:00 134 12/06/16 09:00 131 12/06/16 09:00 131 28 147/100 (116) 92 12/06/16 08:00 113 12/06/16 08:00 105 12/06/16 08:00 98.4 113 20 148/104 (119) 97 12/06/16 08:00 92 Nasal Cannula 5.00 12/06/16 07:50 98 40 12/06/16 07:00 105 17 140/95 (110) 98 12/06/16 06:00 111 12/06/16 06:00 98 Bi-Pap 50 12/06/16 05:00 128 12/06/16 04:50 95 50 12/06/16 04:11 100 12/06/16 03:58 96 12/06/16 03:58 100 100 12/06/16 03:50 130 12/06/16 03:30 94 Non-Rebreather 15.00 100 12/06/16 02:47 137 162/102 (122) 12/06/16 02:47 87 12/06/16 02:47 38 12/06/16 02:31 128 93 12/06/16 02:31 91 12/06/16 01:15 120 18 01:15 96 12/06/16 01:00 22 12/06/16 00:45 96 Nasal Cannula 2.00 12/06/16 00:40 97 12/06/16 00:28 114 12/06/16 00:15 94 12/06/16 00:00 98.7 119 22 147/91 (109) 12/06/16 00:00 92 12/05/16 22:00 97.9 12/05/16 21:56 138/95 (109) 12/05/16 21:56 123 20 12/05/16 21:45 123 20 138/95 (109) 12/05/16 20:00 119 18 12/05/16 20:00 98.3 12/05/16 20:00 145/96 (112) 12/05/16 17:42 98.2 I/O 12/05/16 12/05/16 12/05/16 12/06/16 12/06/16 12/06/16 07:00 15:00 23:00 07:00 15:00 23:00 Intake Total 400 ml 400 ml 500 ml Output Total 400 ml Balance 400 ml 400 ml -400 ml 500 ml IV Total 500 ml Packed Cells 400 ml 400 ml Output Urine Total 400 ml Result Diagram: 12/06/1632412/06/16324 Objective Remarks GENERAL: NAD, A&Ox3 SKIN: Warm and dry. HEAD: Normocephalic. EYES: No scleral icterus. No injection or drainage. NECK: Supple, trachea midline. No JVD or lymphadenopathy. CARDIOVASCULAR: Regular rate and rhythm without murmurs, gallops, or rubs. RESPIRATORY: Breath sounds equal bilaterally. No accessory muscle use. Crackles at bases. GASTROINTESTINAL: Abdomen soft, non-tender, nondistended. MUSCULOSKELETAL: No cyanosis. Edema at lower extremities. BACK: Nontender without obvious deformity. No CVA tenderness. 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 (3) CHF (congestive heart failure) ICD Code: I50.9 - Heart failure, unspecified (4) Delivered by section ICD Code: O82 - Encounter for delivery without indication (5) Flash pulmonary edema ICD Code: J81.0 - Acute pulmonary edema (6) PIH ( induced hypertension), antepartum ICD Code: O13.9 - Gestational [-induced] hypertension without significant proteinuria, unspecified trimester Status: Acute (7) Pulmonary edema ICD Code: J81.1 - Chronic pulmonary edema Status: Acute Assessment and Plan Assessment and Plan 36 y/o female who is post c section and intubation, [facility] was consulted for respiratory distress, related to pulmonary edema (flash pulmonary edema), pre- eclampsia, and pulmonary HTN. New finding today of CHF, likely from a cardiomyopathy, based on echocardiogram (EF 25-30%). Cardiology consulted. 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
[2016-12-06] MEDS: MULTIVIT/MIN/PREN/FOL AC/IRON PRENATAL TAB PO SCH (18:29)
[2016-12-06] MEDS: CARVEDILOL 6.25 MG TAB PO SCH (22:50)
[2016-12-07] VITALS (16 sets, daily range): BP systolic 122–146; BP diastolic 88–105; PULSE 114–130; RESP 16–32; TEMP 98.3–99; O2SAT 95–100
[2016-12-07] MEDS: CHLORHEXIDINE GLUCONATE 2 % 1 PACK (2 CLOTHS)(taper/protocol) TOPICAL SCH (04:00)
[2016-12-07] MEDS: VANCOMYCIN 1,500 MG/NS 500 ML IV SCH ×4 (05:49→18:25)
[2016-12-07] MEDS: oxyCODONE/ACETAMINOPHEN 5 MG/325 MG TAB PO PRN ×4 (05:49→19:33)
[2016-12-07] MEDS: CEFEPIME INJ 2,000 MG in SODIUM CHLORIDE 0.9% INJ 100 ML IV SCH ×3 (05:49→20:43)
[2016-12-07 06:37] LABS: AUTOMATED NEUTROPHIL # 12.1 TH/MM3 (1.8-7.7); BASOPHIL % 0.1 % (0.0-2.0); EOSINOPHIL # 0.1 TH/MM3 (0-0.4); HEMATOCRIT 28.6 % (35.0-46.0); HEMO FLAGS DIFF FINAL; LYMPH % 7.8 % (9.0-44.0); LYMPHOCYTE # 1.1 TH/MM3 (1.0-4.8); MEAN CELL VOLUME 79.4 FL (80.0-100.0); MEAN CORPUSCULAR HEMOGLOBIN 25.7 PG (27.0-34.0); MEAN CORPUSCULAR HGB CONC 32.4 % (32.0-36.0); MONO % 5.1 % (0.0-8.0); PLATELET COUNT 216 TH/MM3 (150-450)
[2016-12-07 06:54] LABS: ANION GAP 6 MEQ/L (5-15); AST (GOT) 90 U/L (15-37); BICARBONATE 28.8 MEQ/L (21.0-32.0); BLOOD UREA NITROGEN 13 MG/DL (7-18); CHLORIDE 106 MEQ/L (98-107); GLOMERULAR FILTRATION RATE 104 ML/MIN (>89); POTASSIUM 4.1 MEQ/L (3.5-5.1); SODIUM (NA) 141 MEQ/L (136-145)
[2016-12-07 06:57] LABS: ALKALINE PHOSPHATASE 109 U/L (45-117); ALT (GPT) 84 U/L (10-53); TOTAL BILIRUBIN ADULT 0.8 MG/DL (0.2-1.0)
[2016-12-07] MEDS: FUROSEMIDE 40 MG/4 ML VIAL IV PUSH SCH ×2 (07:34→18:25)
[2016-12-07] MEDS: LISINOPRIL 5 MG TAB PO SCH (07:34)
[2016-12-07] MEDS: SODIUM CHLORIDE 0.9% FLUSH 10 ML FLUSH IV FLUSH SCH ×2 (07:35→20:44)
[2016-12-07] MEDS: MULTIVIT/MIN/PREN/FOL AC/IRON PRENATAL TAB PO SCH (07:35)
[2016-12-07] MEDS: CARVEDILOL 6.25 MG TAB PO SCH ×2 (07:35→20:43)
--- NOTE | 2016-12-07 08:24 | MB ---
cc: BIBIANA ELLINGTON DATE OF CONSULTATION 12/06/2016 REASON FOR CONSULTATION Ms. Vo is a 36-year-old female who developed , pulmonary edema and preeclampsia. She was treated with magnesium, diuretics and was intubated and underwent a delivery. She was treated for pulmonary edema in the critical care unit with significant improvement of systems. She was subsequently extubated. Her blood pressure is now better controlled. Her echocardiogram shows moderate to severe left ventricular dysfunction consistent with nonischemic cardiomyopathy. PAST MEDICAL HISTORY Past medical history is negative for previous hypertension, dyslipidemia, diabetes mellitus, coronary disease or CVA. MEDICATIONS Medications include: 1. Vancomycin. 2. Furosemide. 3. Albuterol. 4. Vitamins. ALLERGIES None SOCIAL HISTORY The patient does not smoke. She does not drink alcohol. MEDICATIONS Negative for heart disease in relatives. The rest of the review of systems is otherwise negative. PHYSICAL EXAMINATION Blood pressure 131/92, pulse 130 and regular. HEENT: Negative. 2+ carotid upstrokes. No bruits. LUNGS: Clear. HEART: Regular with no murmur, gallop or rub. ABDOMEN: Soft. No bruits. EXTREMITIES: With 1 to 2+ pitting edema. 1+ distal pulses. NEUROLOGIC: Grossly nonfocal. EKG was reviewed and showed sinus tachycardia and delayed R-wave progression of pericardial leads. LABORATORY DATA Hemoglobin 8.9, potassium 3.2, creatinine 0.7, AST and ALT normal, troponin 0.13, BNP 1413. Echocardiogram was reviewed and showed severe left ventricular dysfunction with an ejection fraction of 25-30% with severe global hypokinesis, mild left ventricular hypertrophy, mild mitral regurgitation, mild tricuspid regurgitation and moderate hypertension with estimated pulmonary artery systolic pressure of 50-60 mmHg. DIAGNOSIS 1. Acute congestive heart failure 2. Peripartum cardiomyopathy. 3. Preeclampsia 4. Recent delivery 5. Hypertension DISPOSITION Ms. Vo will continue her current program with IV diuresis. We will initiate therapy for congestive heart failure including beta lolis and MINNIE inhibitor. She will be monitored in the ICU and once stable, she will be transferred to telemetry. We will monitor her renal function and electrolytes. I will follow her for cardiology during her hospitalization. MD PATTI Yarbrough/REMY /9:36 PM /8:03 AM
--- NOTE | 2016-12-07 11:02 | HHI.PR ---
Subjective Remarks Echocardiogram shows EF of 25-30% and Pulmonary HTN. These findings are discussed with the patient. Etiology appears related to . BiPAP needed overnight for 2-3 hours. Continue to monitor in ICU. Respirations are improved. Objective Vital Signs Date Time Temp Pulse Resp B/P (MAP) Pulse Ox O2 Delivery O2 Flow Rate FiO2 12/07/16 10:00 114 27 128/88 (101) 96 12/07/16 10:00 114 12/07/16 08:00 122 12/07/16 08:00 98.5 122 28 137/103 (114) 96 12/07/16 08:00 96 Nasal Cannula 5.00 12/07/16 07:43 95 Nasal Cannula 4.00 12/07/16 06:00 126 12/07/16 04:20 96 Nasal Cannula 5.00 12/07/16 04:00 118 12/07/16 04:00 99.0 118 18 122/89 (100) 100 12/07/16 02:00 119 12/07/16 00:20 97 35 12/07/16 00:00 121 12/07/16 00:00 98.3 121 16 136/91 (106) 100 12/06/16 22:50 18 12/06/16 22:00 144 12/06/16 21:47 100 Nasal Cannula 5.00 12/06/16 20:00 98.1 131 18 130/100 (110) 100 12/06/16 20:00 131 12/06/16 19:00 100 Nasal Cannula 5.00 12/06/16 18:00 133 12/06/16 16:00 127 12/06/16 16:00 98.2 127 26 131/92 (105) 100 12/06/16 15:52 97 Nasal Cannula 4.00 12/06/16 15:00 125 12/06/16 14:00 122 12/06/16 13:00 126 12/06/16 12:00 132 12/06/16 12:00 98.0 132 28 137/96 (110) 100 12/06/16 11:42 100 40 12/06/16 11:00 115 I/O 12/06/16 12/06/16 12/06/16 12/07/16 12/07/16 12/07/16 07:00 15:00 23:00 07:00 15:00 23:00 Intake Total 500 ml 1420 ml 440 ml Output Total 400 ml 4100 ml 1500 ml Balance -400 ml 500 ml -2680 ml -1060 ml Intake Oral 1320 ml 240 ml IV Total 500 ml 100 ml 200 ml Output Urine Total 400 ml 4100 ml 1500 ml # Bowel Movements 0 0 Result Diagram: 12/07/16 0612/07/16 06 Objective Remarks GENERAL: NAD, A&Ox3 SKIN: Warm and dry. HEAD: Normocephalic. EYES: No scleral icterus. No injection or drainage. NECK: Supple, trachea midline. No JVD or lymphadenopathy. CARDIOVASCULAR: Regular rate and rhythm without murmurs, gallops, or rubs. RESPIRATORY: Breath sounds equal bilaterally. No accessory muscle use. Crackles at bases. GASTROINTESTINAL: Abdomen soft, non-tender, nondistended. MUSCULOSKELETAL: No cyanosis. Edema at lower extremities. BACK: Nontender without obvious deformity. No CVA tenderness. 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 (3) CHF (congestive heart failure) ICD Code: I50.9 - Heart failure, unspecified (4) Delivered by section ICD Code: O82 - Encounter for delivery without indication (5) Flash pulmonary edema ICD Code: J81.0 - Acute pulmonary edema (6) PIH ( induced hypertension), antepartum ICD Code: O13.9 - Gestational [-induced] hypertension without significant proteinuria, unspecified trimester Status: Acute (7) Pulmonary edema ICD Code: J81.1 - Chronic pulmonary edema Status: Acute Assessment and Plan Assessment and Plan 36 y/o female who is post c section and intubation, [facility] was consulted for respiratory distress, related to pulmonary edema (flash pulmonary edema), pre- eclampsia, and pulmonary HTN. New finding today of CHF, likely from a cardiomyopathy, based on echocardiogram (EF 25-30%). Cardiology following. Patient still needed BiPAP overnight. Will watch in ICU for about 24 more hours. She is able to be off BiPAP for 24-hour will consider transition to MedSurg. CHF (New) Cardiomyopathy EF of 25-30% on Echocardiogram Cardiology consulted Continue Lasix 40mg IV BID Pulmonary edema Flash Pulmonary Edema Pulmonary HTN Continue Lasix 40mg IV BID Bipap now weaned Follow in ICU Resume BiPap if needed Ventilator associated pneumonia leukocytosis Follow CBC Continue Cefepime Continue Vancomycin PRN DuoNebs Status post Cognos Following DVT prophylaxis Riccardo Moreno MD Dec 07, 2016 11:02
--- NOTE | 2016-12-07 11:11 | HHI.OB ---
Subjective Post Day: 3 Remarks Patient remains in ICU on nasal canula in much better condition, she is comfortable and healing well from CS. She ihas abnormal echo with cardiomyopathy, new lab shows lft elevated Objective Vitals/I&O Vital Signs Date Time Temp Pulse Resp B/P (MAP) Pulse Ox O2 Delivery O2 Flow Rate FiO2 12/07/16 10:00 114 27 128/88 (101) 96 12/07/16 10:00 114 12/07/16 08:00 122 12/07/16 08:00 98.5 122 28 137/103 (114) 96 12/07/16 08:00 96 Nasal Cannula 5.00 12/07/16 07:43 95 Nasal Cannula 4.00 12/07/16 06:00 126 12/07/16 04:20 96 Nasal Cannula 5.00 12/07/16 04:00 118 12/07/16 04:00 99.0 118 18 122/89 (100) 100 12/07/16 02:00 119 12/07/16 00:20 97 35 12/07/16 00:00 121 12/07/16 00:00 98.3 121 16 136/91 (106) 100 12/06/16 22:50 18 12/06/16 22:00 144 12/06/16 21:47 100 Nasal Cannula 5.00 12/06/16 20:00 98.1 131 18 130/100 (110) 100 12/06/16 20:00 131 12/06/16 19:00 100 Nasal Cannula 5.00 12/06/16 18:00 133 12/06/16 16:00 127 12/06/16 16:00 98.2 127 26 131/92 (105) 100 12/06/16 15:52 97 Nasal Cannula 4.00 12/06/16 15:00 125 12/06/16 14:00 122 12/06/16 13:00 126 12/06/16 12:00 132 12/06/16 12:00 98.0 132 28 137/96 (110) 100 12/06/16 11:42 100 40 Intake & Output 12/07/16 12/07/16 07:00 19:00 Intake Total 540 ml Output Total 1500 ml Balance -960 ml Intake Oral 240 ml IV Total 300 ml Output Urine Total 1500 ml # Bowel Movements 0 Objective Remarks lungs clear no crackles GENERAL: Well-nourished, well-developed patient. ABDOMEN/GI: Abdomen soft, non-tender. Fundus: Firm, non-tender at umbilicus. GENITOURINARY: Light to moderate bleeding. EXTREMITIES: No cyanosis or edema, non-tender, without signs of DVT. Medications and IVs Current Medications Medications (Trade) Dose Ordered Sig/Niels Route Start Time Stop Time Status Last Admin (Tylenol) 650 mg Q4H PRN PO 12/03/16 11:30 12/04/16 20:30 (Zofran Odt) 4 mg Q6H PRN PO 12/03/16 12:30 (Stuartnatal Plus 3 ) 1 tab DAILY PO 12/04/16 09:00 12/07/16 07:35 (NS Flush) 2 ml BID IV FLUSH 12/03/16 21:00 12/07/16 07:35 (NS Flush) 2 ml UNSCH PRN IV FLUSH 12/03/16 14:15 (Motrin) 600 mg Q6H PRN PO 12/03/16 14:15 12/05/16 22:57 (Percocet 5-325 Mg) 1 tab Q4H PRN PO 12/03/16 14:15 12/04/16 22:54 (Percocet 5-325 Mg) 2 tab Q4H PRN PO 12/03/16 14:15 12/07/16 07:35 (Trandate Inj) 20 mg Q3H PRN IV PUSH 12/03/16 16:00 (Apresoline Inj) 10 mg Q2H PRN IV PUSH 12/03/16 16:00 (Benadryl) 25 mg Q4H PRN PO 12/04/16 22:45 12/04/16 22:54 (Procardia) 10 mg Q1H PRN PO 12/05/16 22:15 (Lasix Inj) 40 mg BID@,18 IV PUSH 12/06/16 09:00 12/07/16 07:34 Cefepime HCl 2000 mg/Sodium Chloride 100 ml @ 200 mls/hr Q8H IV 12/06/16 05:00 12/07/16 05:49 Pharmacy Profile Note 0 ml @ 0 mls/hr UNSCH OTHER 12/06/16 04:00 (Duoneb Neb) 1 ampule Q6HR NEB NEB 12/06/16 04:00 12/06/16 20:56 (Duoneb Neb) 1 ampule Q2HR NEB PRN NEB 12/06/16 04:00 Miscellaneous Information Patient in critical care unit? Ass... Q361D .XX 12/06/16 06:00 12/06/16 06:00 (Chlorhexidine 2% Cloth) 3 pack DAILY@04 TOPICAL 12/07/16 04:00 12/11/16 04:01 (Chlorhexidine 2% Cloth) 3 pack UNSCH PRN TOPICAL 12/06/16 06:00 12/11/16 05:57 Vancomycin HCl 1500 mg/Sodium Chloride 515 ml @ 257.5 mls/ hr Q12H IV 12/06/16 18:00 12/07/16 05:49 Miscellaneous Information SPECIFIC LAB TO BE ANA... ONCE ONCE .XX 12/07/16 17:45 12/07/16 17:46 (Coreg) 6.25 mg Q12HR PO 12/06/16 21:45 12/07/16 07:35 (Prinivil) 5 mg DAILY PO 12/07/16 09:00 12/07/16 07:34 Assessment/Plan Assessment and Plan PPD # 3 doing much better but still in ICU. She has cardiomyopathy and Dr Casarez is managing Leo Carson MD Dec 07, 2016 11:11
[2016-12-07] MEDS: RESP: ALBUTEROL 2.5 MG/IPRATROPIUM 0.5 MG NEB (SCH) NEB ×2 (15:41→21:35)
--- NOTE | 2016-12-07 17:16 | PD.CARD.PN ---
Subjective Subjective Remarks Atyp CP this AM, improved with diuresis, still w SOB Objective Medications Active Medications Carvedilol (Coreg) 6.25 mg Q12HR PO Last administered on 12/07/16 07:35; Admin Dose 6.25 MG; Start 12/06/16 at 21:45 Chlorhexidine Gluconate (Chlorhexidine 2% Cloth) 3 pack DAILY@04 TOPICAL; Start 12/07/16 at 04:00; Stop 12/11/16 at 04:01 Lisinopril (Prinivil) 5 mg DAILY PO Last administered on 12/07/16 07:34; Admin Dose 5 MG; Start 12/07/16 at 09:00 Miscellaneous Information SPECIFIC LAB TO BE ... ONCE ONCE .XX; Start at 17:45; Stop 12/07/16 at 17:46 Potassium Chloride (KCl) 30 meq ONCE ONCE PO Last administered on 12/06/16 18: 29; Admin Dose 30 MEQ; Start 12/06/16 at 18:00; Stop 12/06/16 at 18:01; Status DC Vancomycin HCl 1500 mg/Sodium Chloride 515 ml @ 257.5 mls/ hr Q12H IV Last administered on 12/07/16 05:49; Admin Dose 257.5 MLS/HR; Start 12/06/16 at 18: 00 Vital Signs / I&O Vital Signs Date Time Temp Pulse Resp B/P (MAP) Pulse Ox O2 Delivery O2 Flow Rate FiO2 12/07/16 16:00 98.5 128 32 145/105 (118) 96 12/07/16 16:00 128 12/07/16 14:00 123 12/07/16 12:00 117 12/07/16 12:00 98.5 117 23 134/92 (106) 98 12/07/16 10:00 114 27 128/88 (101) 96 12/07/16 10:00 114 12/07/16 08:00 122 12/07/16 08:00 98.5 122 28 137/103 (114) 96 12/07/16 08:00 96 Nasal Cannula 5.00 12/07/16 07:43 95 Nasal Cannula 4.00 12/07/16 06:00 126 12/07/16 04:20 96 Nasal Cannula 5.00 12/07/16 04:00 118 12/07/16 04:00 99.0 118 18 122/89 (100) 100 12/07/16 02:00 119 12/07/16 00:20 97 35 12/07/16 00:00 121 12/07/16 00:00 98.3 121 16 136/91 (106) 100 12/06/16 22:50 18 12/06/16 22:00 144 12/06/16 21:47 100 Nasal Cannula 5.00 12/06/16 20:00 98.1 131 18 130/100 (110) 100 12/06/16 20:00 131 12/06/16 19:00 100 Nasal Cannula 5.00 12/06/16 18:00 133 I/O 12/06/16 12/06/16 12/06/16 12/07/16 12/07/16 12/07/16 07:00 15:00 23:00 07:00 15:00 23:00 Intake Total 500 ml 1420 ml 440 ml 100 ml Output Total 400 ml 4100 ml 1500 ml Balance -400 ml 500 ml -2680 ml -1060 ml 100 ml Intake Oral 1320 ml 240 ml IV Total 500 ml 100 ml 200 ml 100 ml Output Urine Total 400 ml 4100 ml 1500 ml # Bowel Movements 0 0 Physical Exam GENERAL: In NAD. SKIN: Warm and dry. HEAD: Normocephalic. EYES: No scleral icterus. No injection or drainage. NECK: Supple, trachea midline. No JVD or lymphadenopathy. CARDIOVASCULAR: Regular rate and rhythm without murmurs, gallops, or rubs. RESPIRATORY: Breath sounds equal bilaterally. No accessory muscle use. Bibasilar crackles. GASTROINTESTINAL: Abdomen soft, non-tender, nondistended. MUSCULOSKELETAL: No cyanosis, 1+ edema. Laboratory Laboratory Tests Test 12/07/16 06:00 White Blood Count 14.0 TH/MM3 Red Blood Count 3.60 MIL/MM3 Hemoglobin 9.3 GM/DL Hematocrit 28.6 % Mean Corpuscular Volume 79.4 FL Mean Corpuscular Hemoglobin 25.7 PG Mean Corpuscular Hemoglobin Concent 32.4 % Red Cell Distribution Width 22.0 % Platelet Count 216 TH/MM3 Mean Platelet Volume 9.4 FL Neutrophils (%) (Auto) 86.0 % Lymphocytes (%) (Auto) 7.8 % Monocytes (%) (Auto) 5.1 % Eosinophils (%) (Auto) 1.0 % Basophils (%) (Auto) 0.1 % Neutrophils # (Auto) 12.1 TH/MM3 Lymphocytes # (Auto) 1.1 TH/MM3 Monocytes # (Auto) 0.7 TH/MM3 Eosinophils # (Auto) 0.1 TH/MM3 Basophils # (Auto) 0.0 TH/MM3 CBC Comment DIFF FINAL Differential Comment Blood Urea Nitrogen 13 MG/DL Creatinine 0.76 MG/DL Random Glucose 93 MG/DL Total Protein 5.5 GM/DL Albumin 1.9 GM/DL Calcium Level 8.2 MG/DL Alkaline Phosphatase 109 U/L Aspartate Amino Transf (AST/SGOT) 90 U/L Alanine Aminotransferase (ALT/SGPT) 84 U/L Total Bilirubin 0.8 MG/DL Sodium Level 141 MEQ/L Potassium Level 4.1 MEQ/L Chloride Level 106 MEQ/L Carbon Dioxide Level 28.8 MEQ/L Anion Gap 6 MEQ/L Estimat Glomerular Filtration Rate 104 ML/MIN Assessment and Plan Problem List: (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 Continue diuresis. No arrhythmias. Increase activity. Continue close monitoring. Landry Casarez MD Dec 07, 2016 17:16
[2016-12-07] MEDS ORDERED: PHARMACY ORDERED LAB ONE (17:45)
[2016-12-08] VITALS (13 sets, daily range): BP systolic 123–144; BP diastolic 83–101; PULSE 115–132; RESP 15–24; TEMP 98.6–98.8; O2SAT 93–100
[2016-12-08] MEDS: CHLORHEXIDINE GLUCONATE 2 % 1 PACK (2 CLOTHS)(taper/protocol) TOPICAL SCH (04:00)
[2016-12-08] MEDS: RESP: ALBUTEROL 2.5 MG/IPRATROPIUM 0.5 MG NEB (SCH) NEB ×4 (04:00→21:06)
[2016-12-08] MEDS: CEFEPIME INJ 2,000 MG in SODIUM CHLORIDE 0.9% INJ 100 ML IV SCH ×3 (04:46→20:35)
[2016-12-08] MEDS: oxyCODONE/ACETAMINOPHEN 5 MG/325 MG TAB PO PRN ×3 (04:51→20:34)
[2016-12-08] MEDS: VANCOMYCIN 1,500 MG/NS 500 ML IV SCH ×2 (05:29)
[2016-12-08 06:15] LABS: AUTOMATED NEUTROPHIL # 9.9 TH/MM3 (1.8-7.7); BASOPHIL % 0.1 % (0.0-2.0); EOSINOPHIL # 0.2 TH/MM3 (0-0.4); HEMATOCRIT 29.5 % (35.0-46.0); HEMO FLAGS DIFF FINAL; LYMPH % 11.5 % (9.0-44.0); LYMPHOCYTE # 1.4 TH/MM3 (1.0-4.8); MEAN CELL VOLUME 79.9 FL (80.0-100.0); MEAN CORPUSCULAR HEMOGLOBIN 25.7 PG (27.0-34.0); MEAN CORPUSCULAR HGB CONC 32.2 % (32.0-36.0); MONO % 6.8 % (0.0-8.0); NEUT % 79.6 % (16.0-70.0); PLATELET COUNT 266 TH/MM3 (150-450); RED BLOOD COUNT 3.68 MIL/MM3 (4.00-5.30); RED CELL DISTRIBUTION WIDTH 22.2 % (11.6-17.2); WHITE BLOOD COUNT 12.4 TH/MM3 (4.0-11.0)
[2016-12-08 06:32] LABS: ANION GAP 8 MEQ/L (5-15); AST (GOT) 46 U/L (15-37); BLOOD UREA NITROGEN 13 MG/DL (7-18); CHLORIDE 105 MEQ/L (98-107); GLOMERULAR FILTRATION RATE 129 ML/MIN (>89); POTASSIUM 3.6 MEQ/L (3.5-5.1); SODIUM (NA) 142 MEQ/L (136-145)
[2016-12-08 06:38] LABS: ALKALINE PHOSPHATASE 94 U/L (45-117); ALT (GPT) 76 U/L (10-53); TOTAL BILIRUBIN ADULT 0.6 MG/DL (0.2-1.0)
[2016-12-08] MEDS: LISINOPRIL 5 MG TAB PO SCH (07:57)
[2016-12-08] MEDS: MULTIVIT/MIN/PREN/FOL AC/IRON PRENATAL TAB PO SCH (07:57)
[2016-12-08] MEDS: FUROSEMIDE 40 MG/4 ML VIAL IV PUSH SCH ×2 (07:58→19:07)
[2016-12-08] MEDS: SODIUM CHLORIDE 0.9% FLUSH 10 ML FLUSH IV FLUSH SCH ×2 (07:58→20:35)
[2016-12-08] MEDS: CARVEDILOL 6.25 MG TAB PO SCH (07:58)
--- NOTE | 2016-12-08 09:35 | HHI.PR ---
Subjective Remarks Echocardiogram shows EF of 25-30% and Pulmonary HTN. These findings are discussed with the patient. Etiology appears related to . No need for BiPAP overnight. Patient still requires oxygen. Slow improvements. Objective Vital Signs Date Time Temp Pulse Resp B/P (MAP) Pulse Ox O2 Delivery O2 Flow Rate FiO2 12/08/16 08:15 95 Nasal Cannula 3.00 12/08/16 07:15 93 Nasal Cannula 3.00 12/08/16 06:00 123 12/08/16 04:00 98.7 125 20 144/101 (115) 98 12/08/16 04:00 125 12/08/16 02:00 121 12/08/16 00:00 98.6 119 20 132/91 (105) 96 12/08/16 00:00 119 12/07/16 22:00 118 12/07/16 21:37 100 Nasal Cannula 4.00 12/07/16 20:00 98.5 129 28 146/103 (117) 100 12/07/16 20:00 129 12/07/16 19:00 99 Nasal Cannula 5.00 12/07/16 18:00 130 12/07/16 16:00 98.5 128 32 145/105 (118) 96 12/07/16 16:00 128 12/07/16 14:00 123 12/07/16 12:00 117 12/07/16 12:00 98.5 117 23 134/92 (106) 98 12/07/16 10:00 114 27 128/88 (101) 96 12/07/16 10:00 114 I/O 12/07/16 12/07/16 12/07/16 12/08/16 12/08/16 12/08/16 07:00 15:00 23:00 07:00 15:00 23:00 Intake Total 440 ml 100 ml 1847 ml 580 ml Output Total 1500 ml 2450 ml 2250 ml Balance -1060 ml 100 ml -603 ml -1670 ml Intake Oral 240 ml 1200 ml 480 ml IV Total 200 ml 100 ml 647 ml 100 ml Output Urine Total 1500 ml 2450 ml 2250 ml # Bowel Movements 0 0 0 Result Diagram: 12/08/1644812/08/16448 Objective Remarks GENERAL: NAD, A&Ox3 SKIN: Warm and dry. HEAD: Normocephalic. EYES: No scleral icterus. No injection or drainage. NECK: Supple, trachea midline. No JVD or lymphadenopathy. CARDIOVASCULAR: Regular rate and rhythm without murmurs, gallops, or rubs. RESPIRATORY: Breath sounds equal bilaterally. No accessory muscle use. Crackles at bases. GASTROINTESTINAL: Abdomen soft, non-tender, nondistended. MUSCULOSKELETAL: No cyanosis. Edema at lower extremities. BACK: Nontender without obvious deformity. No CVA tenderness. 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 (3) CHF (congestive heart failure) ICD Code: I50.9 - Heart failure, unspecified (4) Delivered by section ICD Code: O82 - Encounter for delivery without indication (5) Flash pulmonary edema ICD Code: J81.0 - Acute pulmonary edema (6) PIH ( induced hypertension), antepartum ICD Code: O13.9 - Gestational [-induced] hypertension without significant proteinuria, unspecified trimester Status: Acute (7) Pulmonary edema ICD Code: J81.1 - Chronic pulmonary edema Status: Acute Assessment and Plan Assessment and Plan 36 y/o female who is post c section and intubation, [facility] was consulted for respiratory distress, related to pulmonary edema (flash pulmonary edema), pre- eclampsia, and pulmonary HTN. New finding today of CHF, likely from a cardiomyopathy, based on echocardiogram (EF 25-30%). No need for BiPAP overnight. Patient stable for transfer out of ICU. Gradual improvements are occurring. Cardiology following. 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
[2016-12-08] MEDS: HEPARIN SODIUM - SQ 10,000 UNITS/ML VIAL SQ SCH ×2 (11:52→22:07)
--- NOTE | 2016-12-08 12:50 | PD.CARD.PN ---
Subjective Subjective Remarks No CP, SOB improving, walked with PT, O2 sat 93% ON 3 L O2 Objective Medications Active Medications Heparin Sodium (Porcine) (Heparin Inj) 5,000 units Q12H SQ Last administered on 12/08/16t 11:52; Admin Dose 5,000 UNITS; Start 12/08/16 at 10:00 Miscellaneous Information SPECIFIC LAB TO BE ANA... ONCE ONCE .XX Last administered on 12/07/16 17:45; Admin Dose 1; Start 12/07/16 at 17:45; Stop at 17:46; Status DC Miscellaneous Information SPECIFIC LAB TO BE DRAWN:VANCOMYCIN TROUGH DATE TO... ONCE ONCE .XX; Start 12/10/16 at 05:45; Stop 12/10/16 at 05:46 Vancomycin HCl 2000 mg/Sodium Chloride 520 ml @ 257.5 mls/ hr Q12H IV; Start at 18:00 Vital Signs / I&O Vital Signs Date Time Temp Pulse Resp B/P (MAP) Pulse Ox O2 Delivery O2 Flow Rate FiO2 12/08/16 10:08 98 Nasal Cannula 2.00 12/08/16 08:15 95 Nasal Cannula 3.00 12/08/16 08:00 98.8 124 20 132/83 (99) 93 12/08/16 07:15 93 Nasal Cannula 3.00 12/08/16 06:00 123 12/08/16 04:00 98.7 125 20 144/101 (115) 98 12/08/16 04:00 125 12/08/16 02:00 121 12/08/16 00:00 98.6 119 20 132/91 (105) 96 12/08/16 00:00 119 12/07/16 22:00 118 12/07/16 21:37 100 Nasal Cannula 4.00 12/07/16 20:00 98.5 129 28 146/103 (117) 100 12/07/16 20:00 129 12/07/16 19:00 99 Nasal Cannula 5.00 12/07/16 18:00 130 12/07/16 16:00 98.5 128 32 145/105 (118) 96 12/07/16 16:00 128 12/07/16 14:00 123 I/O 12/07/16 12/07/16 12/07/16 12/08/16 9/20/17 9/20/17 07:00 15:00 23:00 07:00 15:00 23:00 Intake Total 440 ml 100 ml 1847 ml 580 ml Output Total 1500 ml 2450 ml 2250 ml Balance -1060 ml 100 ml -603 ml -1670 ml Intake Oral 240 ml 1200 ml 480 ml IV Total 200 ml 100 ml 647 ml 100 ml Output Urine Total 1500 ml 2450 ml 2250 ml # Bowel Movements 0 0 0 Physical Exam GENERAL: In NAD. SKIN: Warm and dry. HEAD: Normocephalic. EYES: No scleral icterus. No injection or drainage. NECK: Supple, trachea midline. No JVD or lymphadenopathy. CARDIOVASCULAR: Regular rate and rhythm without murmurs, gallops, or rubs. RESPIRATORY: Breath sounds equal bilaterally. No accessory muscle use. Bibasilar crackles. GASTROINTESTINAL: Abdomen soft, non-tender, nondistended. MUSCULOSKELETAL: No cyanosis, 1+ edema. Laboratory Laboratory Tests Test 12/07/16 18:20 12/08/16 04:49 Vancomycin Level Trough 9.7 MCG/ML White Blood Count 12.4 TH/MM3 Red Blood Count 3.68 MIL/MM3 Hemoglobin 9.5 GM/DL Hematocrit 29.5 % Mean Corpuscular Volume 79.9 FL Mean Corpuscular Hemoglobin 25.7 PG Mean Corpuscular Hemoglobin Concent 32.2 % Red Cell Distribution Width 22.2 % Platelet Count 266 TH/MM3 Mean Platelet Volume 9.5 FL Neutrophils (%) (Auto) 79.6 % Lymphocytes (%) (Auto) 11.5 % Monocytes (%) (Auto) 6.8 % Eosinophils (%) (Auto) 2.0 % Basophils (%) (Auto) 0.1 % Neutrophils # (Auto) 9.9 TH/MM3 Lymphocytes # (Auto) 1.4 TH/MM3 Monocytes # (Auto) 0.8 TH/MM3 Eosinophils # (Auto) 0.2 TH/MM3 Basophils # (Auto) 0.0 TH/MM3 CBC Comment DIFF FINAL Differential Comment Blood Urea Nitrogen 13 MG/DL Creatinine 0.63 MG/DL Random Glucose 86 MG/DL Total Protein 5.8 GM/DL Albumin 1.8 GM/DL Calcium Level 8.6 MG/DL Alkaline Phosphatase 94 U/L Aspartate Amino Transf (AST/SGOT) 46 U/L Alanine Aminotransferase (ALT/SGPT) 76 U/L Total Bilirubin 0.6 MG/DL Sodium Level 142 MEQ/L Potassium Level 3.6 MEQ/L Chloride Level 105 MEQ/L Carbon Dioxide Level 29.0 MEQ/L Anion Gap 8 MEQ/L Estimat Glomerular Filtration Rate 129 ML/MIN Assessment and Plan Problem List: (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 Continue diuresis. No arrhythmias. Increase activity. Continue close monitoring. Transfer to [facility]. Landry Casarez MD Dec 08, 2016 12:50
[2016-12-08] MEDS: VANCOMYCIN INJ 2,000 MG in SODIUM CHLORID 0.9% 500 ML INJ 500 ML IV SCH (19:08)
--- NOTE | 2016-12-08 19:30 | HHI.OB ---
Subjective Post Day: 5 Remarks patient is doing well 5 days post . She is still in ICU but has been cleared for telemetry. She is breathing without O2 Objective Vitals/I&O Vital Signs Date Time Temp Pulse Resp B/P (MAP) Pulse Ox O2 Delivery O2 Flow Rate FiO2 12/08/16 19:18 99 Room Air 12/08/16 16:00 98.8 119 15 123/86 (98) 100 12/08/16 15:00 121 12/08/16 12:00 98.8 123 20 123/86 (98) 98 12/08/16 10:08 98 Nasal Cannula 2.00 12/08/16 08:15 95 Nasal Cannula 3.00 12/08/16 08:00 98.8 124 20 132/83 (99) 93 12/08/16 07:15 93 Nasal Cannula 3.00 12/08/16 06:00 123 12/08/16 04:00 98.7 125 20 144/101 (115) 98 12/08/16 04:00 125 12/08/16 02:00 121 12/08/16 00:00 98.6 119 20 132/91 (105) 96 12/08/16 00:00 119 12/07/16 22:00 118 12/07/16 21:37 100 Nasal Cannula 4.00 12/07/16 20:00 98.5 129 28 146/103 (117) 100 12/07/16 20:00 129 Objective Remarks lungs clear no crackles GENERAL: Well-nourished, well-developed patient. ABDOMEN/GI: Abdomen soft, non-tender. Fundus: Firm, non-tender at umbilicus.incision clear GENITOURINARY: Light to moderate bleeding. EXTREMITIES: No cyanosis or edema, non-tender, without signs of DVT. Medications and IVs Current Medications Medications (Trade) Dose Ordered Sig/Niels Route Start Time Stop Time Status Last Admin (Tylenol) 650 mg Q4H PRN PO 12/03/16 11:30 12/04/16 20:30 (Zofran Odt) 4 mg Q6H PRN PO 12/03/16 12:30 (Stuartnatal Plus 3 ) 1 tab DAILY PO 12/04/16 09:00 12/08/16 07:57 (NS Flush) 2 ml BID IV FLUSH 12/03/16 21:00 12/08/16 07:58 (NS Flush) 2 ml UNSCH PRN IV FLUSH 12/03/16 14:15 (Motrin) 600 mg Q6H PRN PO 12/03/16 14:15 12/05/16 22:57 (Percocet 5-325 Mg) 1 tab Q4H PRN PO 12/03/16 14:15 12/08/16 13:21 (Percocet 5-325 Mg) 2 tab Q4H PRN PO 12/03/16 14:15 12/07/16 07:35 (Trandate Inj) 20 mg Q3H PRN IV PUSH 12/03/16 16:00 (Apresoline Inj) 10 mg Q2H PRN IV PUSH 12/03/16 16:00 (Benadryl) 25 mg Q4H PRN PO 12/04/16 22:45 12/04/16 22:54 (Procardia) 10 mg Q1H PRN PO 12/05/16 22:15 (Lasix Inj) 40 mg BID@ IV PUSH 12/06/16 09:00 12/08/16 19:07 Cefepime HCl 2000 mg/Sodium Chloride 100 ml @ 200 mls/hr Q8H IV 12/06/16 05:00 12/08/16 11:53 Pharmacy Profile Note 0 ml @ 0 mls/hr UNSCH OTHER 12/06/16 04:00 (Duoneb Neb) 1 ampule Q6HR NEB NEB 12/06/16 04:00 12/08/16 15:58 (Duoneb Neb) 1 ampule Q2HR NEB PRN NEB 12/06/16 04:00 Miscellaneous Information Patient in critical care unit? Ass... Q361D .XX 12/06/16 06:00 12/06/16 06:00 (Chlorhexidine 2% Cloth) 3 pack DAILY@04 TOPICAL 12/07/16 04:00 12/11/16 04:01 (Chlorhexidine 2% Cloth) 3 pack UNSCH PRN TOPICAL 12/06/16 06:00 12/11/16 05:57 (Heparin Inj) 5,000 units Q12H SQ 12/08/16 10:00 12/08/16 11:52 Vancomycin HCl 2000 mg/Sodium Chloride 520 ml @ 257.5 mls/ hr Q12H IV 12/08/16 18:00 12/08/16 19:08 Miscellaneous Information SPECIFIC LAB TO BE DRAWN:VANCOMYCIN TROUGH DATE TO... ONCE ONCE .XX 12/10/16 05:45 12/10/16 05:46 (Coreg) 12.5 mg Q12HR PO 12/08/16 21:00 (Cozaar) 25 mg DAILY PO 12/09/16 09:00 Assessment/Plan Assessment and Plan PPD # 5 doing much better but still in ICU. She has cardiomyopathy and Dr Casarez is managing. she is clear for transfer to telemetry Leo Carson MD Dec 08, 2016 19:30
[2016-12-08] MEDS: CARVEDILOL 12.5 MG TAB PO SCH (20:35)
[2016-12-09] VITALS (10 sets, daily range): BP systolic 110–136; BP diastolic 75–90; PULSE 114–135; RESP 20–29; TEMP 98.4–99.3; O2SAT 69–100
[2016-12-09] MEDS: RESP: ALBUTEROL 2.5 MG/IPRATROPIUM 0.5 MG NEB (SCH) NEB ×4 (03:49→20:13)
[2016-12-09] MEDS: CHLORHEXIDINE GLUCONATE 2 % 1 PACK (2 CLOTHS)(taper/protocol) TOPICAL SCH ×2 (04:00→21:40)
[2016-12-09] MEDS: CEFEPIME INJ 2,000 MG in SODIUM CHLORIDE 0.9% INJ 100 ML IV SCH ×3 (04:57→21:39)
[2016-12-09 05:06] LABS: AUTOMATED NEUTROPHIL # 8.4 TH/MM3 (1.8-7.7); BASOPHIL % 0.2 % (0.0-2.0); EOSINOPHIL # 0.2 TH/MM3 (0-0.4); EOSINOPHIL % 1.8 % (0.0-4.0); HEMATOCRIT 28.2 % (35.0-46.0); HEMO FLAGS DIFF FINAL; LYMPH % 12.6 % (9.0-44.0); LYMPHOCYTE # 1.4 TH/MM3 (1.0-4.8); MEAN CELL VOLUME 79.8 FL (80.0-100.0); MEAN CORPUSCULAR HEMOGLOBIN 25.5 PG (27.0-34.0); MONO % 8.6 % (0.0-8.0); NEUT % 76.8 % (16.0-70.0); PLATELET COUNT 317 TH/MM3 (150-450); RED BLOOD COUNT 3.54 MIL/MM3 (4.00-5.30); RED CELL DISTRIBUTION WIDTH 22.6 % (11.6-17.2)
[2016-12-09 05:35] LABS: ANION GAP 8 MEQ/L (5-15); AST (GOT) 27 U/L (15-37); BICARBONATE 29.1 MEQ/L (21.0-32.0); BLOOD UREA NITROGEN 17 MG/DL (7-18); CHLORIDE 105 MEQ/L (98-107); GLOMERULAR FILTRATION RATE 127 ML/MIN (>89); POTASSIUM 3.7 MEQ/L (3.5-5.1); SODIUM (NA) 142 MEQ/L (136-145)
[2016-12-09 05:38] LABS: ALKALINE PHOSPHATASE 87 U/L (45-117); ALT (GPT) 54 U/L (10-53); TOTAL BILIRUBIN ADULT 0.5 MG/DL (0.2-1.0)
[2016-12-09] MEDS: VANCOMYCIN INJ 2,000 MG in SODIUM CHLORID 0.9% 500 ML INJ 500 ML IV SCH ×2 (06:05→17:29)
[2016-12-09] MEDS ORDERED: LOSARTAN 25 MG TAB PO SCH (09:00)
[2016-12-09] MEDS: CARVEDILOL 12.5 MG TAB PO SCH ×2 (10:03→21:40)
[2016-12-09] MEDS: MULTIVIT/MIN/PREN/FOL AC/IRON PRENATAL TAB PO SCH (10:03)
[2016-12-09] MEDS: HEPARIN SODIUM - SQ 10,000 UNITS/ML VIAL SQ SCH ×2 (10:03→21:40)
[2016-12-09] MEDS: FUROSEMIDE 40 MG/4 ML VIAL IV PUSH SCH (10:04)
[2016-12-09] MEDS: SODIUM CHLORIDE 0.9% FLUSH 10 ML FLUSH IV FLUSH SCH ×2 (10:04→21:39)
--- NOTE | 2016-12-09 11:11 | HHI.PR ---
Subjective Remarks Echocardiogram shows EF of 25-30% and Pulmonary HTN. These findings are discussed with the patient. Etiology appears related to . Patient continues to improve. No new complaints. She is now off oxygen. Objective Vital Signs Date Time Temp Pulse Resp B/P (MAP) Pulse Ox O2 Delivery O2 Flow Rate FiO2 12/09/16 09:18 96 21 12/09/16 07:00 94 Room Air 12/09/16 04:00 98.6 119 24 113/82 (92) 95 12/09/16 00:00 98.7 124 26 110/79 (89) 97 12/08/16 23:00 115 12/08/16 21:08 99 21 12/08/16 20:00 98.8 132 24 128/89 (102) 100 12/08/16 19:18 99 Room Air 12/08/16 16:00 98.8 119 15 123/86 (98) 100 12/08/16 15:00 121 12/08/16 12:00 98.8 123 20 123/86 (98) 98 I/O 12/08/16 12/08/16 12/08/16 12/09/16 12/09/16 12/09/16 07:00 15:00 23:00 07:00 15:00 23:00 Intake Total 580 ml 615 ml 1220 ml 1100 ml Output Total 2250 ml 1950 ml 1850 ml Balance -1670 ml 615 ml -730 ml -750 ml Intake Oral 480 ml 600 ml 480 ml IV Total 100 ml 615 ml 620 ml 620 ml Output Urine Total 2250 ml 1950 ml 1850 ml # Bowel Movements 0 1 Result Diagram: 12/09/1644112/09/16441 Objective Remarks GENERAL: NAD, A&Ox3 SKIN: Warm and dry. HEAD: Normocephalic. EYES: No scleral icterus. No injection or drainage. NECK: Supple, trachea midline. No JVD or lymphadenopathy. CARDIOVASCULAR: Regular rate and rhythm without murmurs, gallops, or rubs. RESPIRATORY: Breath sounds equal bilaterally. No accessory muscle use. Clear to auscultation bilaterally including basis. GASTROINTESTINAL: Abdomen soft, non-tender, nondistended. MUSCULOSKELETAL: No cyanosis. Edema at lower extremities. BACK: Nontender without obvious deformity. No CVA tenderness. 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 (3) CHF (congestive heart failure) ICD Code: I50.9 - Heart failure, unspecified (4) Delivered by section ICD Code: O82 - Encounter for delivery without indication (5) Flash pulmonary edema ICD Code: J81.0 - Acute pulmonary edema (6) PIH ( induced hypertension), antepartum ICD Code: O13.9 - Gestational [-induced] hypertension without significant proteinuria, unspecified trimester Status: Acute (7) Pulmonary edema ICD Code: J81.1 - Chronic pulmonary edema Status: Acute Assessment and Plan Assessment and Plan 36 y/o female who is post c section and intubation, [facility] was consulted for respiratory distress, related to pulmonary edema (flash pulmonary edema), pre- eclampsia, and pulmonary HTN. New finding today of CHF, likely from a cardiomyopathy, based on echocardiogram (EF 25-30%). No need for BiPAP overnight. Patient now off oxygen. Plan to transfer to [facility]. Lasix changed to by mouth. 40 mg Lasix by mouth daily. Monitor for fluid balance. Minor catheter discontinued. 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
--- NOTE | 2016-12-09 13:14 | PD.CARD.PN ---
Subjective Subjective Remarks No CP or SOB, feels better, off O2 Objective Medications Active Medications Carvedilol (Coreg) 12.5 mg Q12HR PO Last administered on 12/09/16 10:03; Admin Dose 12.5 MG; Start 12/08/16 at 21:00 Furosemide (Lasix) 40 mg DAILY PO; Start 12/10/16 at 09:00 Furosemide (Lasix) 40 mg ONCE ONCE PO; Start 12/09/16 at 17:00; Stop 12/09/16 at 17:01 Losartan Potassium (Cozaar) 25 mg DAILY PO Last administered on 12/09/16 10:03 ; Admin Dose 25 MG; Start 12/09/16 at 09:00 Miscellaneous Information SPECIFIC LAB TO BE DRAWN:VANCOMYCIN TROUGH DATE TO... ONCE ONCE .XX; Start 12/10/16 at 05:45; Stop 12/10/16 at 05:46 Vancomycin HCl 2000 mg/Sodium Chloride 520 ml @ 257.5 mls/ hr Q12H IV Last administered on 12/09/16 06:05; Admin Dose 257.5 MLS/HR; Start 12/08/16 at 18: 00 Vital Signs / I&O Vital Signs Date Time Temp Pulse Resp B/P (MAP) Pulse Ox O2 Delivery O2 Flow Rate FiO2 12/09/16 09:18 96 21 12/09/16 08:00 98.8 135 20 136/90 (105) 94 12/09/16 07:00 94 Room Air 12/09/16 04:00 98.6 119 24 113/82 (92) 95 12/09/16 00:00 98.7 124 26 110/79 (89) 97 12/08/16 23:00 115 12/08/16 21:08 99 21 12/08/16 20:00 98.8 132 24 128/89 (102) 100 12/08/16 19:18 99 Room Air 12/08/16 16:00 98.8 119 15 123/86 (98) 100 12/08/16 15:00 121 I/O 12/08/16 12/08/16 12/08/16 12/09/16 12/09/16 12/09/16 07:00 15:00 23:00 07:00 15:00 23:00 Intake Total 580 ml 615 ml 1220 ml 1100 ml Output Total 2250 ml 1950 ml 1850 ml Balance -1670 ml 615 ml -730 ml -750 ml Intake Oral 480 ml 600 ml 480 ml IV Total 100 ml 615 ml 620 ml 620 ml Output Urine Total 2250 ml 1950 ml 1850 ml # Bowel Movements 0 1 Physical Exam GENERAL: In NAD. SKIN: Warm and dry. HEAD: Normocephalic. EYES: No scleral icterus. No injection or drainage. NECK: Supple, trachea midline. No JVD or lymphadenopathy. CARDIOVASCULAR: Regular rate and rhythm without murmurs, gallops, or rubs. RESPIRATORY: Breath sounds equal bilaterally. No accessory muscle use. Clear. GASTROINTESTINAL: Abdomen soft, non-tender, nondistended. MUSCULOSKELETAL: No cyanosis, 1+ edema. Laboratory Laboratory Tests Test 12/09/16 04:42 White Blood Count 11.0 TH/MM3 Red Blood Count 3.54 MIL/MM3 Hemoglobin 9.0 GM/DL Hematocrit 28.2 % Mean Corpuscular Volume 79.8 FL Mean Corpuscular Hemoglobin 25.5 PG Mean Corpuscular Hemoglobin Concent 32.0 % Red Cell Distribution Width 22.6 % Platelet Count 317 TH/MM3 Mean Platelet Volume 8.7 FL Neutrophils (%) (Auto) 76.8 % Lymphocytes (%) (Auto) 12.6 % Monocytes (%) (Auto) 8.6 % Eosinophils (%) (Auto) 1.8 % Basophils (%) (Auto) 0.2 % Neutrophils # (Auto) 8.4 TH/MM3 Lymphocytes # (Auto) 1.4 TH/MM3 Monocytes # (Auto) 0.9 TH/MM3 Eosinophils # (Auto) 0.2 TH/MM3 Basophils # (Auto) 0.0 TH/MM3 CBC Comment DIFF FINAL Differential Comment Blood Urea Nitrogen 17 MG/DL Creatinine 0.64 MG/DL Random Glucose 94 MG/DL Total Protein 5.9 GM/DL Albumin 1.9 GM/DL Calcium Level 8.3 MG/DL Alkaline Phosphatase 87 U/L Aspartate Amino Transf (AST/SGOT) 27 U/L Alanine Aminotransferase (ALT/SGPT) 54 U/L Total Bilirubin 0.5 MG/DL Sodium Level 142 MEQ/L Potassium Level 3.7 MEQ/L Chloride Level 105 MEQ/L Carbon Dioxide Level 29.1 MEQ/L Anion Gap 8 MEQ/L Estimat Glomerular Filtration Rate 127 ML/MIN Assessment and Plan Problem List: (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 Continue diuresis. No arrhythmias. Increase activity. Continue close monitoring. Transfer to [facility]. Landry Casarez MD Dec 09, 2016 13:14
--- NOTE | 2016-12-09 13:51 | HHI.OB ---
Subjective Post Day: 6 Remarks doing well, waiting on transfer out of ICU Objective Vitals/I&O Vital Signs Date Time Temp Pulse Resp B/P (MAP) Pulse Ox O2 Delivery O2 Flow Rate FiO2 12/09/16 09:18 96 21 12/09/16 08:00 98.8 135 20 136/90 (105) 94 12/09/16 07:00 94 Room Air 12/09/16 04:00 98.6 119 24 113/82 (92) 95 12/09/16 00:00 98.7 124 26 110/79 (89) 97 12/08/16 23:00 115 12/08/16 21:08 99 21 12/08/16 20:00 98.8 132 24 128/89 (102) 100 12/08/16 19:18 99 Room Air 12/08/16 16:00 98.8 119 15 123/86 (98) 100 12/08/16 15:00 121 Intake & Output 12/09/16 12/09/16 07:00 19:00 Intake Total 1720 ml Output Total 1850 ml Balance -130 ml Intake Oral 480 ml IV Total 1240 ml Output Urine Total 1850 ml Objective Remarks lungs clear no crackles GENERAL: Well-nourished, well-developed patient. ABDOMEN/GI: Abdomen soft, non-tender. Fundus: Firm, non-tender at umbilicus.incision clear GENITOURINARY: Light to moderate bleeding. EXTREMITIES: No cyanosis or edema, non-tender, without signs of DVT. Medications and IVs Current Medications Medications (Trade) Dose Ordered Sig/Niels Route Start Time Stop Time Status Last Admin (Tylenol) 650 mg Q4H PRN PO 12/03/16 11:30 12/04/16 20:30 (Zofran Odt) 4 mg Q6H PRN PO 12/03/16 12:30 (Stuartnatal Plus 3 ) 1 tab DAILY PO 12/04/16 09:00 12/09/16 10:03 (NS Flush) 2 ml BID IV FLUSH 12/03/16 21:00 12/09/16 10:04 (NS Flush) 2 ml UNSCH PRN IV FLUSH 12/03/16 14:15 (Motrin) 600 mg Q6H PRN PO 12/03/16 14:15 12/05/16 22:57 (Percocet 5-325 Mg) 1 tab Q4H PRN PO 12/03/16 14:15 12/08/16 20:34 (Percocet 5-325 Mg) 2 tab Q4H PRN PO 12/03/16 14:15 12/07/16 07:35 (Trandate Inj) 20 mg Q3H PRN IV PUSH 12/03/16 16:00 (Apresoline Inj) 10 mg Q2H PRN IV PUSH 12/03/16 16:00 (Benadryl) 25 mg Q4H PRN PO 12/04/16 22:45 12/04/16 22:54 (Procardia) 10 mg Q1H PRN PO 12/05/16 22:15 Cefepime HCl 2000 mg/Sodium Chloride 100 ml @ 200 mls/hr Q8H IV 12/06/16 05:00 12/09/16 04:57 Pharmacy Profile Note 0 ml @ 0 mls/hr UNSCH OTHER 12/06/16 04:00 (Duoneb Neb) 1 ampule Q6HR NEB NEB 12/06/16 04:00 12/09/16 09:18 (Duoneb Neb) 1 ampule Q2HR NEB PRN NEB 12/06/16 04:00 Miscellaneous Information Patient in critical care unit? Ass... Q361D .XX 12/06/16 06:00 12/06/16 06:00 (Chlorhexidine 2% Cloth) 3 pack DAILY@04 TOPICAL 12/07/16 04:00 12/11/16 04:01 (Chlorhexidine 2% Cloth) 3 pack UNSCH PRN TOPICAL 12/06/16 06:00 12/11/16 05:57 (Heparin Inj) 5,000 units Q12H SQ 12/08/16 10:00 12/09/16 10:03 Vancomycin HCl 2000 mg/Sodium Chloride 520 ml @ 257.5 mls/ hr Q12H IV 12/08/16 18:00 12/09/16 06:05 Miscellaneous Information SPECIFIC LAB TO BE DRAWN:VANCOMYCIN TROUGH DATE TO... ONCE ONCE .XX 12/10/16 05:45 12/10/16 05:46 (Coreg) 12.5 mg Q12HR PO 12/08/16 21:00 12/09/16 10:03 (Lasix) 40 mg DAILY PO 12/10/16 09:00 (Lasix) 40 mg ONCE ONCE PO 12/09/16 17:00 12/09/16 17:01 (Entresto 24-26 Mg) 1 tab BID PO 12/10/16 09:00 Assessment/Plan Assessment and Plan PPD # 6 doing much better but still in ICU. She has cardiomyopathy and Dr Casarez is managing. she is clear for transfer to telemetry Leo Carson MD Dec 09, 2016 13:51
[2016-12-09] MEDS ORDERED: FUROSEMIDE 40 MG TAB PO ONE (17:00)
[2016-12-10] VITALS (13 sets, daily range): BP systolic 101–119; BP diastolic 62–85; PULSE 103–122; RESP 19–26; TEMP 98.1–98.9; O2SAT 95–100
[2016-12-10] MEDS: RESP: ALBUTEROL 2.5 MG/IPRATROPIUM 0.5 MG NEB (SCH) NEB (03:07)
[2016-12-10] MEDS ORDERED: PHARMACY ORDERED LAB ONE (05:45)
[2016-12-10] MEDS: CEFEPIME INJ 2,000 MG in SODIUM CHLORIDE 0.9% INJ 100 ML IV SCH ×3 (05:52→21:00)
[2016-12-10 06:17] LABS: AUTOMATED NEUTROPHIL # 6.7 TH/MM3 (1.8-7.7); BASOPHIL % 0.2 % (0.0-2.0); EOSINOPHIL # 0.3 TH/MM3 (0-0.4); EOSINOPHIL % 2.9 % (0.0-4.0); HEMATOCRIT 26.8 % (35.0-46.0); HEMO FLAGS DIFF FINAL; LYMPH % 14.3 % (9.0-44.0); LYMPHOCYTE # 1.3 TH/MM3 (1.0-4.8); MEAN CORPUSCULAR HEMOGLOBIN 25.4 PG (27.0-34.0); MEAN CORPUSCULAR HGB CONC 31.3 % (32.0-36.0); NEUT % 73.6 % (16.0-70.0); PLATELET COUNT 333 TH/MM3 (150-450); RED BLOOD COUNT 3.31 MIL/MM3 (4.00-5.30); RED CELL DISTRIBUTION WIDTH 22.7 % (11.6-17.2); WHITE BLOOD COUNT 9.2 TH/MM3 (4.0-11.0)
[2016-12-10 06:44] LABS: BICARBONATE 29.3 MEQ/L (21.0-32.0); POTASSIUM 3.9 MEQ/L (3.5-5.1)
[2016-12-10 06:46] LABS: VANCOMYCIN TROUGH 11.8 MCG/ML (5.0-10.0)
[2016-12-10] MEDS: VANCOMYCIN INJ 2,000 MG in SODIUM CHLORID 0.9% 500 ML INJ 500 ML IV SCH (07:25)
--- NOTE | 2016-12-10 07:51 | HHI.OB ---
Subjective Post Day: 8 Remarks Patient still in ICU but awaiting bed on telemetry, She is better everyday with breathing and ambulation. She is aware of her disease and importance of symptoms to watch for. Objective Vitals/I&O Vital Signs Date Time Temp Pulse Resp B/P (MAP) Pulse Ox O2 Delivery O2 Flow Rate FiO2 12/10/16 04:00 98.8 103 19 95 12/10/16 00:00 98.9 119 26 97 12/09/16 23:00 114 12/09/16 22:00 29 115/81 (92) 69 12/09/16 20:14 99 12/09/16 20:00 99.3 121 27 12/09/16 16:00 98.4 127 20 114/75 (88) 99 12/09/16 16:00 127 12/09/16 12:00 98.5 123 22 112/76 (88) 100 12/09/16 09:18 96 21 12/09/16 08:00 98.8 135 20 136/90 (105) 94 Intake & Output 12/10/16 12/10/16 07:00 19:00 Intake Total 240 ml Balance 240 ml Intake Oral 240 ml # Voids 2 Objective Remarks lungs clear no crackles GENERAL: Well-nourished, well-developed patient. ABDOMEN/GI: Abdomen soft, non-tender. sushant out and incision clear and dry Fundus: Firm, non-tender at umbilicus.incision clear GENITOURINARY: Light to moderate bleeding. EXTREMITIES: No cyanosis or edema, non-tender, without signs of DVT. Medications and IVs Current Medications Medications (Trade) Dose Ordered Sig/Niels Route Start Time Stop Time Status Last Admin (Tylenol) 650 mg Q4H PRN PO 12/03/16 11:30 12/04/16 20:30 (Zofran Odt) 4 mg Q6H PRN PO 12/03/16 12:30 12/09/16 17:29 (Stuartnatal Plus 3 ) 1 tab DAILY PO 12/04/16 09:00 12/09/16 10:03 (NS Flush) 2 ml BID IV FLUSH 12/03/16 21:00 12/09/16 21:39 (NS Flush) 2 ml UNSCH PRN IV FLUSH 12/03/16 14:15 (Motrin) 600 mg Q6H PRN PO 12/03/16 14:15 12/05/16 22:57 (Percocet 5-325 Mg) 1 tab Q4H PRN PO 12/03/16 14:15 12/08/16 20:34 (Percocet 5-325 Mg) 2 tab Q4H PRN PO 12/03/16 14:15 12/07/16 07:35 (Trandate Inj) 20 mg Q3H PRN IV PUSH 12/03/16 16:00 (Apresoline Inj) 10 mg Q2H PRN IV PUSH 12/03/16 16:00 (Benadryl) 25 mg Q4H PRN PO 12/04/16 22:45 12/04/16 22:54 (Procardia) 10 mg Q1H PRN PO 12/05/16 22:15 Cefepime HCl 2000 mg/Sodium Chloride 100 ml @ 200 mls/hr Q8H IV 12/06/16 05:00 12/10/16 05:52 Pharmacy Profile Note 0 ml @ 0 mls/hr UNSCH OTHER 12/06/16 04:00 (Duoneb Neb) 1 ampule Q2HR NEB PRN NEB 12/06/16 04:00 Miscellaneous Information Patient in critical care unit? Ass... Q361D .XX 12/06/16 06:00 12/06/16 06:00 (Chlorhexidine 2% Cloth) 3 pack DAILY@04 TOPICAL 12/07/16 04:00 12/11/16 04:01 (Chlorhexidine 2% Cloth) 3 pack UNSCH PRN TOPICAL 12/06/16 06:00 12/11/16 05:57 (Heparin Inj) 5,000 units Q12H SQ 12/08/16 10:00 12/09/16 21:40 Vancomycin HCl 2000 mg/Sodium Chloride 520 ml @ 257.5 mls/ hr Q12H IV 12/08/16 18:00 12/10/16 07:25 (Coreg) 12.5 mg Q12HR PO 12/08/16 21:00 12/09/16 21:40 (Lasix) 40 mg DAILY PO 12/10/16 09:00 (Entresto 24-26 Mg) 1 tab BID PO 12/10/16 09:00 Assessment/Plan Assessment and Plan PPD # 8 doing better. Followed by cardiology. She has stated cardiology may DC home in AM Leo Carson MD Dec 10, 2016 07:51
[2016-12-10] MEDS: SODIUM CHLORIDE 0.9% FLUSH 10 ML FLUSH IV FLUSH SCH ×2 (08:55→21:26)
[2016-12-10] MEDS: SACUBITRIL/VALSARTAN 24 MG-26 MG TAB PO SCH ×2 (08:56→21:26)
[2016-12-10] MEDS: FUROSEMIDE 40 MG TAB PO SCH (08:56)
[2016-12-10] MEDS: CARVEDILOL 12.5 MG TAB PO SCH ×2 (08:56→21:26)
[2016-12-10] MEDS: MULTIVIT/MIN/PREN/FOL AC/IRON PRENATAL TAB PO SCH (08:56)
--- NOTE | 2016-12-10 11:01 | HHI.PR ---
Subjective Remarks Echocardiogram shows EF of 25-30% and Pulmonary HTN. These findings are discussed with the patient. Etiology appears related to . No complaints from the patient. No worsening in fluid retention with Wean to Lasix 40mg PO Daily. Off oxygen. Objective Vital Signs Date Time Temp Pulse Resp B/P (MAP) Pulse Ox O2 Delivery O2 Flow Rate FiO2 12/10/16 08:00 98.4 12/10/16 08:00 98.4 119 20 119/85 (96) 99 12/10/16 04:00 98.8 103 19 95 12/10/16 00:00 98.9 119 26 97 12/09/16 23:00 114 12/09/16 22:00 29 115/81 (92) 69 12/09/16 20:14 99 12/09/16 20:00 99.3 121 27 12/09/16 16:00 98.4 127 20 114/75 (88) 99 12/09/16 16:00 127 12/09/16 12:00 98.5 123 22 112/76 (88) 100 I/O 12/09/16 12/09/16 12/09/16 12/10/16 12/10/16 12/10/16 07:00 15:00 23:00 07:00 15:00 23:00 Intake Total 1100 ml 720 ml 240 ml Output Total 1850 ml 1600 ml Balance -750 ml -880 ml 240 ml Intake Oral 480 ml 720 ml 240 ml IV Total 620 ml Output Urine Total 1850 ml 1600 ml # Voids 4 2 # Bowel Movements 1 Result Diagram: 12/10/16 0540 12/10/16 0634 Objective Remarks GENERAL: NAD, A&Ox3 SKIN: Warm and dry. HEAD: Normocephalic. EYES: No scleral icterus. No injection or drainage. NECK: Supple, trachea midline. No JVD or lymphadenopathy. CARDIOVASCULAR: Regular rate and rhythm without murmurs, gallops, or rubs. RESPIRATORY: Breath sounds equal bilaterally. No accessory muscle use. Clear to auscultation bilaterally including basis. GASTROINTESTINAL: Abdomen soft, non-tender, nondistended. MUSCULOSKELETAL: No cyanosis. Edema at lower extremities. BACK: Nontender without obvious deformity. No CVA tenderness. 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 (3) CHF (congestive heart failure) ICD Code: I50.9 - Heart failure, unspecified (4) Delivered by section ICD Code: O82 - Encounter for delivery without indication (5) Flash pulmonary edema ICD Code: J81.0 - Acute pulmonary edema (6) PIH ( induced hypertension), antepartum ICD Code: O13.9 - Gestational [-induced] hypertension without significant proteinuria, unspecified trimester Status: Acute (7) Pulmonary edema ICD Code: J81.1 - Chronic pulmonary edema Status: Acute Assessment and Plan Assessment and Plan 36 y/o female who is post c section and intubation, [facility] was consulted for respiratory distress, related to pulmonary edema (flash pulmonary edema), pre- eclampsia, and pulmonary HTN. New finding today of CHF, likely from a cardiomyopathy, based on echocardiogram (EF 25-30%). Continues off oxygen. Tolerating Daily Lasix. Plan to initiate Enestro today ( per cardiology). Monitor for increased fluid losses or hypotension. Follow on telemetry. Possible DC tomorrow if stable over the next 24 hours. 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
--- NOTE | 2016-12-10 16:50 | PD.CARD.PN ---
Objective Medications Administered Medications Medications (Trade) Dose Ordered Sig/Niels Route PRN Reason Start Time Stop Time Status Last Admin Dose Admin Acetaminophen (Tylenol) 650 mg Q4H PRN PO HEADACHE 12/03/16 11:30 12/04/16 20:30 Ondansetron HCl (Zofran Odt) 4 mg Q6H PRN PO NAUSEA OR VOMITING 12/03/16 12:30 12/09/16 17:29 Prenat Multivit/ Cover Stripper/Iron/Folic Ac (Stuartnatal Plus 3 ) 1 tab DAILY PO 12/04/16 09:00 12/10/16 08:56 Sodium Chloride (NS Flush) 2 ml BID IV FLUSH 12/03/16 21:00 12/10/16 08:55 Ibuprofen (Motrin) 600 mg Q6H PRN PO CRAMPING 12/03/16 14:15 12/05/16 22:57 Oxycodone/ Acetaminophen (Percocet 5-325 Mg) 1 tab Q4H PRN PO PAIN SCALE 3 TO 5 12/03/16 14:15 12/08/16 20:34 Oxycodone/ Acetaminophen (Percocet 5-325 Mg) 2 tab Q4H PRN PO PAIN SCALE 6 TO 10 12/03/16 14:15 12/07/16 07:35 Diphenhydramine HCl (Benadryl) 25 mg Q4H PRN PO FOR ITCHING 12/04/16 22:45 12/04/16 22:54 Cefepime HCl 2000 mg/Sodium Chloride 100 ml @ 200 mls/hr Q8H IV 12/06/16 05:00 12/10/16 14:00 Miscellaneous Information Patient in critical care unit? Ass... Q361D .XX 12/06/16 06:00 12/06/16 06:00 Heparin Sodium (Porcine) (Heparin Inj) 5,000 units Q12H SQ 12/08/16 10:00 Future Hold 12/09/16 21:40 Vancomycin HCl 2000 mg/Sodium Chloride 520 ml @ 257.5 mls/ hr Q12H IV 12/08/16 18:00 12/10/16 07:25 Carvedilol (Coreg) 12.5 mg Q12HR PO 12/08/16 21:00 12/10/16 08:56 Furosemide (Lasix) 40 mg DAILY PO 12/10/16 09:00 12/10/16 08:56 Sacubitril/ Valsartan (Entresto 24-26 Mg) 1 tab BID PO 12/10/16 09:00 12/10/16 08:56 Vital Signs / I&O Vital Signs Date Time Temp Pulse Resp B/P (MAP) Pulse Ox O2 Delivery O2 Flow Rate FiO2 12/10/16 16:00 98.4 112 20 101/62 (75) 97 12/10/16 15:00 104 12/10/16 12:00 98.4 107 24 109/68 (82) 98 12/10/16 08:00 98.4 12/10/16 08:00 98.4 119 20 119/85 (96) 99 12/10/16 07:00 119 12/10/16 04:00 98.8 103 19 95 12/10/16 00:00 98.9 119 26 97 12/09/16 23:00 114 12/09/16 22:00 29 115/81 (92) 69 12/09/16 20:14 99 12/09/16 20:00 99.3 121 27 I/O 12/09/16 12/09/16 12/09/16 12/10/16 12/10/16 12/10/16 07:00 15:00 23:00 07:00 15:00 23:00 Intake Total 1100 ml 720 ml 240 ml 500 ml Output Total 1850 ml 1600 ml Balance -750 ml -880 ml 240 ml 500 ml Intake Oral 480 ml 720 ml 240 ml IV Total 620 ml 500 ml Output Urine Total 1850 ml 1600 ml # Voids 4 2 # Bowel Movements 1 Physical Exam GENERAL: In NAD. SKIN: Warm and dry. HEAD: Normocephalic. EYES: No scleral icterus. No injection or drainage. NECK: Supple, trachea midline. No JVD or lymphadenopathy. CARDIOVASCULAR: Regular rate and rhythm without murmurs, gallops, or rubs. RESPIRATORY: Breath sounds equal bilaterally. No accessory muscle use. Clear. GASTROINTESTINAL: Abdomen soft, non-tender, nondistended. MUSCULOSKELETAL: No cyanosis, 1+ edema. Laboratory Laboratory Tests Test 12/10/16 05:40 12/10/16 06:34 White Blood Count 9.2 TH/MM3 Red Blood Count 3.31 MIL/MM3 Hemoglobin 8.4 GM/DL Hematocrit 26.8 % Mean Corpuscular Volume 81.0 FL Mean Corpuscular Hemoglobin 25.4 PG Mean Corpuscular Hemoglobin Concent 31.3 % Red Cell Distribution Width 22.7 % Platelet Count 333 TH/MM3 Mean Platelet Volume 8.7 FL Neutrophils (%) (Auto) 73.6 % Lymphocytes (%) (Auto) 14.3 % Monocytes (%) (Auto) 9.0 % Eosinophils (%) (Auto) 2.9 % Basophils (%) (Auto) 0.2 % Neutrophils # (Auto) 6.7 TH/MM3 Lymphocytes # (Auto) 1.3 TH/MM3 Monocytes # (Auto) 0.8 TH/MM3 Eosinophils # (Auto) 0.3 TH/MM3 Basophils # (Auto) 0.0 TH/MM3 CBC Comment DIFF FINAL Differential Comment Blood Urea Nitrogen 17 MG/DL Creatinine 0.61 MG/DL Random Glucose 86 MG/DL Calcium Level 8.2 MG/DL Sodium Level 144 MEQ/L Potassium Level 3.9 MEQ/L Chloride Level 108 MEQ/L Carbon Dioxide Level 29.3 MEQ/L Anion Gap 7 MEQ/L Estimat Glomerular Filtration Rate 134 ML/MIN Vancomycin Level Trough 11.8 MCG/ML Assessment and Plan Problem List: (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 Continue diuresis. No arrhythmias. Increase activity. Continue close monitoring. Transfer to [facility]. Landry Casarez MD Dec 10, 2016 16:50
--- NOTE | 2016-12-10 17:05 | PD.CARD.PN ---
Subjective Subjective Remarks No CP or SOB, feels better, ambulating without difficulty Objective Medications Administered Medications Medications (Trade) Dose Ordered Sig/Niels Route PRN Reason Start Time Stop Time Status Last Admin Dose Admin Acetaminophen (Tylenol) 650 mg Q4H PRN PO HEADACHE 12/03/16 11:30 12/04/16 20:30 Ondansetron HCl (Zofran Odt) 4 mg Q6H PRN PO NAUSEA OR VOMITING 12/03/16 12:30 12/09/16 17:29 Prenat Multivit/ [employer]/Iron/Folic Ac (Stuartnatal Plus 3 ) 1 tab DAILY PO 12/04/16 09:00 12/10/16 08:56 Sodium Chloride (NS Flush) 2 ml BID IV FLUSH 12/03/16 21:00 12/10/16 08:55 Ibuprofen (Motrin) 600 mg Q6H PRN PO CRAMPING 12/03/16 14:15 12/05/16 22:57 Oxycodone/ Acetaminophen (Percocet 5-325 Mg) 1 tab Q4H PRN PO PAIN SCALE 3 TO 5 12/03/16 14:15 12/08/16 20:34 Oxycodone/ Acetaminophen (Percocet 5-325 Mg) 2 tab Q4H PRN PO PAIN SCALE 6 TO 10 12/03/16 14:15 12/07/16 07:35 Diphenhydramine HCl (Benadryl) 25 mg Q4H PRN PO FOR ITCHING 12/04/16 22:45 12/04/16 22:54 Cefepime HCl 2000 mg/Sodium Chloride 100 ml @ 200 mls/hr Q8H IV 12/06/16 05:00 12/10/16 14:00 Miscellaneous Information Patient in critical care unit? Ass... Q361D .XX 12/06/16 06:00 12/06/16 06:00 Heparin Sodium (Porcine) (Heparin Inj) 5,000 units Q12H SQ 12/08/16 10:00 Future Hold 12/09/16 21:40 Vancomycin HCl 2000 mg/Sodium Chloride 520 ml @ 257.5 mls/ hr Q12H IV 12/08/16 18:00 12/10/16 07:25 Carvedilol (Coreg) 12.5 mg Q12HR PO 12/08/16 21:00 12/10/16 08:56 Furosemide (Lasix) 40 mg DAILY PO 12/10/16 09:00 12/10/16 08:56 Sacubitril/ Valsartan (Entresto 24-26 Mg) 1 tab BID PO 12/10/16 09:00 12/10/16 08:56 Vital Signs / I&O Vital Signs Date Time Temp Pulse Resp B/P (MAP) Pulse Ox O2 Delivery O2 Flow Rate FiO2 12/10/16 16:00 98.4 112 20 101/62 (75) 97 12/10/16 15:00 104 12/10/16 12:00 98.4 107 24 109/68 (82) 98 12/10/16 08:00 98.4 12/10/16 08:00 98.4 119 20 119/85 (96) 99 12/10/16 07:00 119 12/10/16 04:00 98.8 103 19 95 12/10/16 00:00 98.9 119 26 97 12/09/16 23:00 114 12/09/16 22:00 29 115/81 (92) 69 12/09/16 20:14 99 12/09/16 20:00 99.3 121 27 I/O 12/09/16 12/09/16 12/09/16 12/10/16 12/10/16 12/10/16 07:00 15:00 23:00 07:00 15:00 23:00 Intake Total 1100 ml 720 ml 240 ml 500 ml Output Total 1850 ml 1600 ml Balance -750 ml -880 ml 240 ml 500 ml Intake Oral 480 ml 720 ml 240 ml IV Total 620 ml 500 ml Output Urine Total 1850 ml 1600 ml # Voids 4 2 # Bowel Movements 1 Physical Exam GENERAL: In NAD. SKIN: Warm and dry. HEAD: Normocephalic. EYES: No scleral icterus. No injection or drainage. NECK: Supple, trachea midline. No JVD or lymphadenopathy. CARDIOVASCULAR: Regular rate and rhythm without murmurs, gallops, or rubs. RESPIRATORY: Breath sounds equal bilaterally. No accessory muscle use. Clear. GASTROINTESTINAL: Abdomen soft, non-tender, nondistended. MUSCULOSKELETAL: No cyanosis, trace edema. Laboratory Laboratory Tests Test 12/10/16 05:40 12/10/16 06:34 White Blood Count 9.2 TH/MM3 Red Blood Count 3.31 MIL/MM3 Hemoglobin 8.4 GM/DL Hematocrit 26.8 % Mean Corpuscular Volume 81.0 FL Mean Corpuscular Hemoglobin 25.4 PG Mean Corpuscular Hemoglobin Concent 31.3 % Red Cell Distribution Width 22.7 % Platelet Count 333 TH/MM3 Mean Platelet Volume 8.7 FL Neutrophils (%) (Auto) 73.6 % Lymphocytes (%) (Auto) 14.3 % Monocytes (%) (Auto) 9.0 % Eosinophils (%) (Auto) 2.9 % Basophils (%) (Auto) 0.2 % Neutrophils # (Auto) 6.7 TH/MM3 Lymphocytes # (Auto) 1.3 TH/MM3 Monocytes # (Auto) 0.8 TH/MM3 Eosinophils # (Auto) 0.3 TH/MM3 Basophils # (Auto) 0.0 TH/MM3 CBC Comment DIFF FINAL Differential Comment Blood Urea Nitrogen 17 MG/DL Creatinine 0.61 MG/DL Random Glucose 86 MG/DL Calcium Level 8.2 MG/DL Sodium Level 144 MEQ/L Potassium Level 3.9 MEQ/L Chloride Level 108 MEQ/L Carbon Dioxide Level 29.3 MEQ/L Anion Gap 7 MEQ/L Estimat Glomerular Filtration Rate 134 ML/MIN Vancomycin Level Trough 11.8 MCG/ML Assessment and Plan Problem List: (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 Continue and titrate tx for CHF including beta lolis; Entresto started this AM. Labs OK. Continue diuresis. No arrhythmias. Increase activity. Continue close monitoring. Transfer to [facility]. Home tomorrow if stable. Landry Casarez MD Dec 10, 2016 17:05
[2016-12-11] VITALS: BP 102/70; PULSE 105; RESP 29; TEMP 99.2; O2SAT 96
[2016-12-11 02:00] VITALS: PULSE 97
[2016-12-11 04:00] VITALS: BP 103/72; PULSE 104; RESP 17; TEMP 98.1; O2SAT 98
[2016-12-11] MEDS: CHLORHEXIDINE GLUCONATE 2 % 1 PACK (2 CLOTHS)(taper/protocol) TOPICAL SCH (04:00)
[2016-12-11] MEDS: CEFEPIME INJ 2,000 MG in SODIUM CHLORIDE 0.9% INJ 100 ML IV SCH (05:00)
[2016-12-11 05:02] LABS: HEMATOCRIT 26.2 % (35.0-46.0); MEAN CELL VOLUME 80.4 FL (80.0-100.0); MEAN CORPUSCULAR HEMOGLOBIN 25.2 PG (27.0-34.0); MEAN CORPUSCULAR HGB CONC 31.4 % (32.0-36.0); PLATELET COUNT 345 TH/MM3 (150-450); RED BLOOD COUNT 3.26 MIL/MM3 (4.00-5.30); RED CELL DISTRIBUTION WIDTH 22.3 % (11.6-17.2); REVIEW FLAG FINAL; WHITE BLOOD COUNT 8.6 TH/MM3 (4.0-11.0)
[2016-12-11 05:18] LABS: BICARBONATE 26.2 MEQ/L (21.0-32.0); POTASSIUM 3.7 MEQ/L (3.5-5.1)
[2016-12-11] MEDS ORDERED: PHARMACY ORDERED LAB ONE (05:45)
[2016-12-11] MEDS: VANCOMYCIN INJ 2,000 MG in SODIUM CHLORID 0.9% 500 ML INJ 500 ML IV SCH (06:28)
[2016-12-11 07:00] VITALS: PULSE 100
[2016-12-11 08:00] VITALS: BP 108/74; PULSE 103; RESP 22; TEMP 98.5; O2SAT 96
[2016-12-11] MEDS: CARVEDILOL 12.5 MG TAB PO SCH (08:57)
[2016-12-11] MEDS: FUROSEMIDE 40 MG TAB PO SCH (08:57)
[2016-12-11] MEDS: SACUBITRIL/VALSARTAN 24 MG-26 MG TAB PO SCH (08:57)
[2016-12-11] MEDS: MULTIVIT/MIN/PREN/FOL AC/IRON PRENATAL TAB PO SCH (08:57)
[2016-12-11] MEDS: SODIUM CHLORIDE 0.9% FLUSH 10 ML FLUSH IV FLUSH SCH (08:58)
--- NOTE | 2016-12-11 09:29 | HHI.OB ---
Subjective Post Day: 8 Remarks Patient feels much better. She has slight tachycardia but is doing well with fluids and cardiology meds. She will follow up with me this week and Quadrat in 2 weeks Objective Vitals/I&O Vital Signs Date Time Temp Pulse Resp B/P (MAP) Pulse Ox O2 Delivery O2 Flow Rate FiO2 12/11/16 04:00 98.1 104 17 103/72 (82) 98 12/11/16 02:00 97 12/11/16 00:00 99.2 105 29 102/70 (81) 96 12/11/16 00:00 105 12/10/16 22:00 115 12/10/16 21:00 120 21 107/72 (84) 100 12/10/16 20:00 122 12/10/16 19:39 99 12/10/16 19:00 98.1 111 26 111/73 (86) 99 12/10/16 17:57 98 12/10/16 16:00 98.4 112 20 101/62 (75) 97 12/10/16 15:00 104 12/10/16 12:00 98.4 107 24 109/68 (82) 98 Intake & Output 12/11/16 12/11/16 07:00 19:00 Intake Total 680 ml Output Total 5 ml Balance 675 ml Intake Oral 480 ml IV Total 200 ml Output Urine Total 5 ml Objective Remarks lungs clear no crackles bases Heart RRR no murmur or gallop. HR 112 GENERAL: Well-nourished, well-developed patient. ABDOMEN/GI: Abdomen soft, non-tender. sushant out and incision clear and dry Fundus: Firm, non-tender.incision clear sushant out GENITOURINARY: Light to moderate bleeding. EXTREMITIES: No cyanosis or edema, non-tender, without signs of DVT. Medications and IVs Current Medications Medications (Trade) Dose Ordered Sig/Niels Route Start Time Stop Time Status Last Admin (Tylenol) 650 mg Q4H PRN PO 12/03/16 11:30 12/04/16 20:30 (Zofran Odt) 4 mg Q6H PRN PO 12/03/16 12:30 12/09/16 17:29 (Stuartnatal Plus 3 ) 1 tab DAILY PO 12/04/16 09:00 12/11/16 08:57 (NS Flush) 2 ml BID IV FLUSH 12/03/16 21:00 12/11/16 08:58 (NS Flush) 2 ml UNSCH PRN IV FLUSH 12/03/16 14:15 (Percocet 5-325 Mg) 1 tab Q4H PRN PO 12/03/16 14:15 12/08/16 20:34 (Percocet 5-325 Mg) 2 tab Q4H PRN PO 12/03/16 14:15 12/07/16 07:35 (Benadryl) 25 mg Q4H PRN PO 12/04/16 22:45 12/04/16 22:54 Cefepime HCl 2000 mg/Sodium Chloride 100 ml @ 200 mls/hr Q8H IV 12/06/16 05:00 12/11/16 05:00 Pharmacy Profile Note 0 ml @ 0 mls/hr UNSCH OTHER 12/06/16 04:00 (Duoneb Neb) 1 ampule Q2HR NEB PRN NEB 12/06/16 04:00 12/10/16 22:55 Miscellaneous Information Patient in critical care unit? Ass... [id number] .XX 12/06/16 06:00 12/06/16 06:00 (Heparin Inj) 5,000 units Q12H SQ 12/08/16 10:00 Future Hold 12/09/16 21:40 Vancomycin HCl 2000 mg/Sodium Chloride 520 ml @ 257.5 mls/ hr Q12H IV 12/08/16 18:00 12/11/16 06:28 (Lasix) 40 mg DAILY PO 12/10/16 09:00 12/11/16 08:57 (Entresto 24-26 Mg) 1 tab BID PO 12/10/16 09:00 12/11/16 08:57 (Coreg) 25 mg Q12HR PO 12/10/16 21:00 12/11/16 08:57 Assessment/Plan Assessment and Plan PPD # 8 doing better. Followed by cardiology. DC home cleared by them. Leo Carson MD Dec 11, 2016 09:29
[2016-12-11] MEDS ORDERED: FURO40TA PO (09:34)
[2016-12-11] MEDS ORDERED: SACU1TAB PO (09:34)
[2016-12-11] MEDS ORDERED: CARV12.5 PO (09:34)
--- NOTE | 2016-12-11 09:39 | HHI.DS ---
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 Pt is 35 weeks and 5 days. She reports nausea and vomiting past 3 days. Seen at [facility] and sent home with modified bed rest Pt also reports diarrhea since last night. Denies any sick contacts. She has had some headaches, but no vision disturbances and no right upper quadrant pain. Pt states BP has been elevated past few days, first at ER and then at the office. Pt has had longstanding pedal edema, but appears to have worsened past couple of days. Active movements No vaginal bleeding or vaginal leaking. Hospital Course Patient admitted and had immediate flash pulmonary edema and had stat CS and spent 24 hours in ICU. She then had pulmonary edema and was diagnosed with induced cardiomyopathy. She has medication for heart failure and is doing much better. Follow up with Quadrat and myself. Pt Condition on Discharge: Stable Discharge Disposition: Discharge Home Discharge Instructions Diet Instructions: Low Sodium Diet Activities You Can Perform: Partial Weight Bearing, Pelvic Rest Follow up Referrals: [facility] - 1 Week @ [facility] with Leo Carson MD New Medications: Carvedilol (Coreg) 12.5 Mg Tab 25 MG PO Q12HR for Prevent Heart Failure, #60 TAB 6 Refills Furosemide (Furosemide) 40 Mg Tab 40 MG PO DAILY for Dyspnea for 30 Days, #30 TAB 3 Refills Sacubitril-Valsartan (Entresto) 24-26 Mg Tab 1 TAB PO BID for Dyspnea for 30 Days, #60 TAB 6 Refills Continued Medications: Miscellaneous (No Current Meds) Misc Discontinued Medications: Oxycodone W/ Acetaminophen (Percocet) 1 Tab Tab 1 - 2 MT Q4HPRN, #20 Leo Carson MD Dec 11, 2016 09:39
--- NOTE | 2016-12-11 14:22 | MD ---
cc: ANIKA SHAH ADMISSION DATE: 12/03/2016 DISCHARGE DATE: 12/11/2016 HOSPITAL COURSE This is a 36-year-old -[place] female 3, para 2 who came in the hospital for diarrhea and vomiting was walked to Her hospital room, developed shortness of breath acutely, had flash pulmonary edema had required a section for poor oxygenation and possible distress. The patient underwent that section at that time. Working diagnosis was severe preeclampsia with pulmonary edema. The patient was admitted to the Intensive Care Unit where she was then intubated for 24 hours. She improved quickly with the excellent care of the intensive care unit physicians. Once we extubated the patient the patient remained in the Intensive Care Unit and then was transferred back to labor and delivery. Once the patient was back in labor and delivery, she was doing very well, she was tolerating a diet. She was having no problems with pulmonary edema after 30 hours. After extubation she developed pulmonary edema again, she was admitted to the MICU with BiPAP where she was well oxygenated diuresed again at that point an echocardiogram was done which diagnosed with her with post cardiomyopathy. The patient had severe cardiomyopathy with an ejection fraction of about 25%. The patient is followed by Dr. Casarez and was started on medication including beta lolis and medication for her heart along with Lasix. The patient did very well. She was stable on the day of discharge 12/11. Her Hemoglobin was 8.2, she had slight tachycardia but was feeling good. At that point we felt like she was stable for discharge and she will be discharged home on pelvic rest, stable condition on regular diet, low sodium. She will follow up with me in one week. She will follow up with Dr. Casarez in two weeks, if she has any difficulties at all with breathing or other problems she will notify me immediately. MD OSWALD Brewer/shaun /9:41 AM /2:07 PM
== END 2016-12-11 10:46 | disposition home or self-care (01) | DRG 765 ==
LOC: HOBED 10:40 → H2EA 12:23 → N03A 14:20 → OBSVTOIN 15:36 → H2EA 12-04 13:29 → H1EA 12-05 15:57 → HIMN 12-06 04:45
PROVIDERS: ADMIT Obstetrics & Gynecology; ATTEND Obstetrics & Gynecology
PROC: 10D00Z1 Extraction of Products of Conception, Low, Open Approach (ICD-10-PCS; principal; 2016-12-03)
PROC: 5A1935Z Respiratory Ventilation, Less than 24 Consecutive Hours (ICD-10-PCS; 2016-12-03)
PROC: 05H633Z Insertion of Infusion Device into Left Subclavian Vein, Percutaneous Approach (ICD-10-PCS; 2016-12-03)
PROC: 30233N1 Transfusion of Nonautologous Red Blood Cells into Peripheral Vein, Percutaneous Approach (ICD-10-PCS; 2016-12-05)
DX: O14.14 Severe pre-eclampsia complicating childbirth (principal); J96.91 Respiratory failure, unspecified with hypoxia; J95.851 Ventilator associated pneumonia; I50.41 Acute combined systolic (congestive) and diastolic (congestive) heart failure; I27.2 Other secondary pulmonary hypertension; O90.3 Peripartum cardiomyopathy; I11.0 Hypertensive heart disease with heart failure; O99.42 Diseases of the circulatory system complicating childbirth; O72.1 Other immediate postpartum hemorrhage; J81.0 Acute pulmonary edema; O32.1XX0 Maternal care for breech presentation, not applicable or unspecified; Z37.0 Single live birth; Z3A.35 35 weeks gestation of pregnancy; E86.0 Dehydration; K52.9 Noninfective gastroenteritis and colitis, unspecified; Z82.49 Family history of ischemic heart disease and other diseases of the circulatory system; I08.1 Rheumatic disorders of both mitral and tricuspid valves; O99.02 Anemia complicating childbirth; Y84.8 Other medical procedures as the cause of abnormal reaction of the patient, or of later complication, without mention of misadventure at the time of the procedure
CPT/HCPCS: 36430; 36556; 36600; 59025; 71010; 74000; 76815; 76937; 80048; 80053; 80202; 81001; 82550; 82552; 82805; 83605; 83735; 83880; 84100; 84484; 84550; 85007; 85014; 85018; 85025; 85027; 85384; 85610; 85730; 86850; 86900; 86901; 86920; 87086; 87641; 93005; 93308; 94002; 94003; 94150; 94640; 94664; 96360; 96361; J0690; J0692; J1644; J1885; J1940; J2250; J2590; J3010; J3370; J3475; J7040; J7050; J7120; J7613; P9016